=== PATIENT | female | born 1955 | race Caucasian/White ===

== ENCOUNTER 2018-02-25 16:04 | Outpatient (RCR) | payer BC, SELFPAY ==
--- NOTE | 2018-02-25 14:27 | PTTR_ITS ---
DATE: 02/25/18 SUBJECTIVE: Pt states that she is doing ok and would just like some updates on her HEP. OBJECTIVE: Manual therapy: ([id number]).Pt placed in the supine position receiving gentle traction through the talocrural joint but help in a position of 10* of plantarflexion. She is lightly mobilized with segmental glides laterally of the calcaneus while mobilizing the subtalar joint on a fixed talus. Pt then mobilized with a gentle tower glide on a fixed ankle mortis with posterior direction and then light plantar flexion and dorsiflexion to end range with the knee extended. Gentle soft tissue mobilization around the peroneal tendons was also applied with good effect. Therapeutic procedures ([id number]). * X HEP review * X Provided skilled instruction in proper exercise performance * X Provided skilled manual cues to facilitate proper muscle recruitment and/ or movement pattern * X Other: Pt taken through walking lunges, SLS with UE exercises also taken through high knee pause with walks progressing this activity to include longer time spent in a SLS position. We will also dynamically working through gait progressions. Direct treatment time: 30 minutes Total treatment time: 30 minutes
== END 2018-03-22 23:59 | disposition home or self-care (01) ==
LOC: PT 16:04
PROVIDERS: PCP Nurse Practitioner Family; Referring Provider Orthopaedic Surgery; Visit Provider Orthopaedic Surgery
DX: S86.312D Strain of muscle(s) and tendon(s) of peroneal muscle group at lower leg level, left leg, subsequent encounter (principal)
CPT/HCPCS: 97110; 97140

== ENCOUNTER 2018-07-05 16:09 | Outpatient (REF) | payer BC, SELFPAY ==
[2018-07-05 20:52] LABS: BUN 24 mg/dL (7-18); CREATININE 0.74 mg/dL (0.55-1.02); Calcium 8.7 mg/dL (8.5-10.1); Chloride 103 mmol/L (98-107); Glucose 96 mg/dL (70-100); Potassium 3.9 mmol/L (3.5-5.1); Sodium 142 mmol/L (136-145)
[2018-07-05 21:42] LABS: Hemoglobin A1C 5.7 % (4.5-6.2)
[2018-07-08 11:01] LABS: Hepatitis C Ab w Rflx HCV PCR Negative (NEGAT)
== END 2018-07-05 16:29 ==
LOC: NCHCN 16:09
PROVIDERS: PCP Nurse Practitioner Family; Visit Provider Nurse Practitioner Family
DX: R20.2 Paresthesia of skin (principal); K64.9 Unspecified hemorrhoids; K59.00 Constipation, unspecified; E13.10 Other specified diabetes mellitus with ketoacidosis without coma; Z00.00 Encounter for general adult medical examination without abnormal findings; R51 Headache; R73.01 Impaired fasting glucose; E66.3 Overweight; Z11.59 Encounter for screening for other viral diseases
CPT/HCPCS: 80048; 86803; 83036

== ENCOUNTER 2018-09-16 10:59 | Day surgery (SDC) | payer BC, SELFPAY ==
--- NOTE | 2018-09-16 07:05 | W.COLOREPORT ---
Date of service: 09/16/18 Time of Service: 12:32 Colonoscopy Report Date of procedure: 09/16/18 Pre-op diagnosis general: Colon Cancer screening Post-op diagnosis procedure note: same Procedure: Colonoscopy Surgeon: Dahlia Flores Anesthesia proc note operative: MAC (Rj Corona, PEDRO/ ASA 2) Estimated blood loss (mL): 0 Pathology: none sent Complications: None Disposition: same day Indications: Mrs. Watts is a pleasant 63 year old female who was seen in the office for a screening colonoscopy. Her last colonoscopy was in 2007 and was normal. Risks, benefits and complications have been reviewed. Complications include but are not limited to bleeding, pain, perforation, missed small lesion/polyp, sore throat, aspiration and adverse reaction to the medications. Questions were entertained and answered to their satisfaction and they wished to proceed. No guarantees were given or implied. Prep: Miralax/Dulcolax Procedure Start Time: 12:32 Procedure End Time: 13:02 Retraction Time: 10 Findings: Diverticulosis of sigmoid colon Procedure Description: After informed consent was obtained the patient was taken to the procedure room and placed in a left decubitous position. Monitors were applied and a time out was done. The patients name, date of , procedure, allergies to medications and metal in their body was reviewed. The patient was then sedated. Once sedated and comfortable a rectal exam was done. External exam was normal. Internal exam revealed a normal sphincter tone and no palpable masses. The scope was then introduced and retro-flexed. No internal hemorrhoids were identified. The scope was then advanced to the cecum with some difficulty due to some sharp corners and tortuousity of the descending and transverse colon. The TI and appendiceal orifice were identified. The prep was adequate. The scope was then slowly retracted over 10 minutes back into the rectum. There were no polyps. There was mild diverticulosis noted in the descending and sigmoid colon. The scope was removed and the patient was woken up and taken back to Same day surgery in stable condition. The patient tolerated the procedure well and there were no immediate complications. Follow up: The patient should follow up in 10 years unless they develop changes in bowel habits or other new gastrointestinal complaints.
--- NOTE | 2018-09-16 07:09 | W.PM.DSUDISC ---
Discharge Plan Disposition Patient Disposition: HOME Condition: Good Discharge Details Reason For Visit: Colon Cancer screening Attending Provider: Dahlia Flores Primary Care Provider: Rupinder Farooq Home Meds and New Rx's Prescriptions: Continued hydrocortisone acetate [Anusol-HC] 25 mg suppository 25 mg [place] DAILY PRN (Reason: hemorrhoids) RF: 0 cholecalciferol (vitamin D3) 1,000 unit capsule 1,000 unit PO DAILY RF: 0 sumatriptan succinate [Imitrex] 50 MG tablet 50 mg PO PRN RF: 0 glucosamine sulfate 2KCl 1,000 MG tablet 1,000 mg PO DAILY RF: 0 celecoxib [Celebrex] 50 MG capsule 100 mg PO BID RF: 0 multivitamin [Daily Multi-Vitamin] 1 EACH tablet 1 ea PO DAILY RF: 0 melatonin 3 MG tablet 3 mg PO DAILY RF: 0 omega-3 fatty acids-fish oil 1 EACH capsule 1 ea PO DAILY RF: 0 estradiol [Vagifem] 10 MCG tablet 10 mcg VG 2x/wk Qty: 24 RF: 4 amlodipine 5 MG tablet 5 mg PO DAILY RF: 0 Fiber Laxative (methylcellulo) 500 MG tablet 1 tab PO DAILY RF: 0 acetaminophen [Tylenol Extra Strength] 500 mg Tablet 1,000 mg PO PRNRF: 0 Discontinued bisacodyl [Dulcolax (bisacodyl)] 5 mg tablet,delayed release (DR/EC) 5 mg PO ONCE Qty: 4 RF: 0 polyethylene glycol 3350 17 gram/dose powder 255 g PO ONCE Qty: 255 RF: 0 Discharge Instructions Instructions: Colonoscopy (DC), Diverticulosis (DC) Additional Instructions: Findings: diverticulosis Follow up: 10 years Please call if you develop: fevers >101.5 Nausea or Vomiting Abdominal pain that is not transient DAY SURGERY UNIT POST COLONOSCOPY INSTRUCTIONS 1. Because there will be medication in your system for the next 24 hours, you may feel a little sleepy. Your coordination will be affected. Therefore: a. Do not drive or operate dangerous equipment for 24 hours. b. Do not drink alcohol beverages for 24 hours (not even beer). c. Plan to go home and rest for the day. 2. Generally there are no restrictions on your activity after a day or so has gone by, but you may feel a bit fatigued for a few days. 3 After you arrive home you may have a light meal and return to a normal diet as you can tolerate it without feeling sick to your stomach. 4. After surgery, you may feel pain or discomfort. This should be only transient, but if it persists please contact your doctor. 5. If there are any questions regarding the findings of your procedure, please feel free to contact your doctor. 6. If you are unable to contact your doctor with a problem, contact the hospital at [phone]. 7. Continue all your regular medications unless directed otherwise. I understand the above instructions and have no questions. Signature of Patient or Responsible Adult Escort Date/Time Name of Responsible Adult Escort Signature of Nurse Date/Time Activity:: Activity as Tolerated Diet:: high fiber diet Discharge Orders Discharge Orders: Discharge Order (Routine); Ordered 09/16/18 Ordered By: Dahlia Flores DS: Diagnosis Discharge Diagnosis (1) H/O colonoscopy: Status: Chronic
[2018-09-16 11:50] VITALS: BP 140/80; PULSE 65; RESP 18; TEMP 37; O2SAT 100
[2018-09-16] MEDS: Lactated Ringers 1,000 ML 80 ML IV (12:10)
[2018-09-16 14:10] VITALS: BP 145/78; PULSE 71; RESP 14; TEMP 36.6; O2SAT 100
== END 2018-09-16 14:43 | disposition home or self-care (01) ==
LOC: SUR 10:59
PROVIDERS: PCP Nurse Practitioner Family; Visit Provider Surgery
PROC: 0DJD8ZZ Inspection of Lower Intestinal Tract, Via Natural or Artificial Opening Endoscopic (ICD-10-PCS; CPT 45378; principal; 2018-09-16 12:30)
DX: Z12.11 Encounter for screening for malignant neoplasm of colon (principal); K57.30 Diverticulosis of large intestine without perforation or abscess without bleeding
CPT/HCPCS: 45378

== ENCOUNTER 2019-03-05 03:41 | Outpatient (CLI) | payer BC, SELFPAY ==
--- NOTE | 2019-03-05 12:22 | DI.MAMMO_ITS ---
SYMPTOM/DIAGNOSIS: SCREENING, Z12.31 BILATERAL SCREENING MAMMOGRAM: Mammograms were interpreted according to the usual protocol including computer analysis with CAD system, tomosynthesis and C view imaging. Comparison is made with exams from 2015 through 2018. The breasts are composed of scattered fibroglandular densities, breast density category B. There is a stable area of nodularity in the lateral right breast. No suspicious masses or suspicious microcalcifications or changes are seen. IMPRESSION: Category 2, negative mammogram with benign findings. Yearly screening mammography is recommended. Breast density category B. MQSA ASSESSMENT OF FINDINGS: Negative with benign findings. Category 2. Patient will receive a letter notifying them of these results. BI-RADS category B. There are scattered areas of fibroglandular density.
== END 2019-03-05 04:01 ==
PROVIDERS: PCP Nurse Practitioner Family; Visit Provider Nurse Practitioner Family
DX: Z13.21 Encounter for screening for nutritional disorder (principal)
CPT/HCPCS: 77063; 77067

== ENCOUNTER 2019-07-25 12:34 | Outpatient (REF) | payer BC, SELFPAY ==
[2019-07-25 20:29] LABS: Abs Immature Grans 0.01 k/cumm (0.0-0.09); Absolute Basophil Count 0.02 k/cumm (0.0-0.2); Absolute Eosinophil Count 0.13 k/cumm (0.0-0.7); Absolute Lymphocyte Count 2.03 k/cumm (1.2-3.4); Absolute Monocyte Count 0.47 k/cumm (0.11-0.7); Absolute Neutrophil Count 2.69 k/cumm (1.2-6.7); Basophils % 0.4; Eosinophils % 2.4; HCT 38.6 % (36.0-46.0); HGB 12.9 g/dL (12.0-15.5); Immature Grans % 0.2 %; Lymphocytes % 37.9; Mean Corp. HGB Concentration 33.4 g/dL (32.0-36.0); Mean Corpuscular Hemoglobin 30.1 pg (27.0-33.0); Mean Platelet Volume 10.5 fL (8.0-11.0); Monocytes % 8.8; Neutrophils % 50.3; Platelet Count 234 x1000/uL (130-400); RBC 4.29 m/cumm (4.00-5.20); White Blood Cell Count 5.35 k/cumm (4.4-10.8)
[2019-07-25 20:44] LABS: ALT 41 U/L (14-59); AST 20 U/L (15-37); Albumin 3.9 g/dL (3.4-5.0); Alkaline Phosphatase 57 U/L (46-116); Anion Gap 10.9 mmol/L (3-11); BUN 17 mg/dL (7-18); Bilirubin, Total 0.4 mg/dL (0.2-1.0); CO2 28.1 mmol/L (21.0-32.0); CREATININE 0.76 mg/dL (0.55-1.02); Calcium 9.3 mg/dL (8.5-10.1); Calculated LDL 90 mg/dL; Chloride 103 mmol/L (98-107); Cholesterol 170 mg/dL (<200); Glucose 102 mg/dL (74-106); HDL Cholesterol 43 mg/dL (40-60); Potassium 3.8 mmol/L (3.5-5.1); Sodium 142 mmol/L (136-145); Triglyceride 186 mg/dL (<150)
[2019-07-25 20:45] LABS: Hemoglobin A1C 5.8 % (3.8-5.6)
== END 2019-07-25 12:54 ==
LOC: NCHCN 12:34
PROVIDERS: PCP Nurse Practitioner Family; Visit Provider Nurse Practitioner Family
DX: Z00.00 Encounter for general adult medical examination without abnormal findings (principal); R73.01 Impaired fasting glucose; K59.00 Constipation, unspecified; K64.9 Unspecified hemorrhoids; L29.9 Pruritus, unspecified; M54.5 Low back pain; R20.2 Paresthesia of skin; M79.646 Pain in unspecified finger(s)
CPT/HCPCS: 80053; 80061; 83036; 84443; 85025

== ENCOUNTER 2019-10-24 15:36 | Emergency (ER) | payer BC, SELFPAY | END 2019-10-24 23:10 | LOC: ER 10-26 05:28 | PROVIDERS: PCP Nurse Practitioner Family | DX: Z53.21 Procedure and treatment not carried out due to patient leaving prior to being seen by health care provider (principal) ==

== ENCOUNTER 2020-05-12 18:37 | Outpatient (REF) | payer BC, SELFPAY ==
[2020-05-12 22:29] LABS: HCT 38.6 % (36.0-46.0); HGB 12.8 g/dL (11.2-15.7); MCH 30.1 pg (27.0-33.0); MCHC 33.2 % (32.0-36.0); MCV 90.8 fL (80-95); MPV 10.6 fL (8.0-11.0); Platelet Count 241 10^3/uL (130-400); RBC 4.25 10^6/uL (3.93-5.22); RDW-SD 42.6 fL; WBC 6.08 10^3/uL (4.4-10.8)
[2020-05-12 22:37] LABS: ALT 30 U/L (14-59); AST 17 U/L (15-37); Albumin 3.9 g/dL (3.4-5.0); Alkaline Phosphatase 57 U/L (46-116); Anion Gap 7.1 mmol/L (3-11); BUN 22 mg/dL (7-18); Bilirubin, Total 0.3 mg/dL (0.2-1.0); CO2 26.9 mmol/L (21.0-32.0); CREATININE 0.99 mg/dL (0.55-1.02); Calcium 8.7 mg/dL (8.5-10.1); Chloride 104 mmol/L (98-107); Estimated GFR 56.47 (mL/min/1.73m2); Glucose 91 mg/dL (74-106); Potassium 3.9 mmol/L (3.5-5.1); Sodium 138 mmol/L (136-145); Total Protein 6.8 g/dL (6.4-8.2)
== END 2020-05-12 18:57 ==
LOC: NCHCN 18:37
PROVIDERS: PCP Nurse Practitioner Family; Visit Provider Family Medicine
DX: R10.31 Right lower quadrant pain (principal)
CPT/HCPCS: 80053; 85027

== ENCOUNTER 2020-05-14 10:34 | Outpatient (REF) | payer BC, SELFPAY ==
[2020-05-18 13:13] LABS: Misc Referral (VDH) See Comments
== END 2020-05-14 10:54 ==
LOC: LBN 10:34
PROVIDERS: PCP Nurse Practitioner Family; Visit Provider Family Medicine
DX: R10.31 Right lower quadrant pain (principal)
CPT/HCPCS: 87177

== ENCOUNTER 2020-06-10 01:16 | Outpatient (CLI) | payer BC, SELFPAY ==
--- NOTE | 2020-06-10 09:58 | DI.CT_ITS ---
EXAM: CT ABDOMEN PELVIS W CLINICAL HISTORY: RLQ ABD PAIN,R10.31 TECHNIQUE: Imaging Protocol: Axial computed tomography images with coronal and sagittal reformatted images were created and reviewed CONTRAST MATERIAL: Intravenous: Omnipaque 350 Contrast volume:100 mL Oral: Yes COMPARISON: CT ABD PELVIS WITH CONTRAST from 07/29/2010 FINDINGS: ABDOMEN: Lung Bases: Normal where visualized. Small hiatal hernia. Liver: Normal density. No measurable mass. The liver measures 18.9 cm in length. Portal, Superior Mesenteric, and Splenic Veins: Unremarkable. Gallbladder and Biliary Tract: No radiodense calculus or dilation. Pancreas: Normal density, no abnormal calcifications or inflammatory process. Spleen: Normal. Adrenals: No masses seen. Kidneys: Normal size, contour and axis. No radiodense stones or obstructive uropathy. There is a 1.2 cm hyperdense nodule in the anterior aspect of the superior pole of the left kidney. There is an 8.1 transverse by 8.1 AP by 7.42 craniocaudad cm simple cyst in the inferior pole of the left kidney. Abdominal Aorta: Abdominal portion non-dilated. Minimal atherosclerosis. Bowel: No obstruction or bowel wall thickening. No evidence of acute appendicitis. There are few sca ttered diverticula in the sigmoid colon but no evidence of acute diverticulitis. Peritoneal Cavity: No ascites, collection or mesenteric inflammatory response. Lymph Nodes: Within normal limits. Bones: Degenerative changes are present in the lumbar spine. Note is made of a hemangioma in the L3 vertebral body. Soft Tissues: There is a small fat containing umbilical hernia. PELVIS: Bladder: Symmetric distention, no gross wall thickening. Reproductive Organs: There is a pessary in place. Reproductive organs are otherwise unremarkable. Lymph Nodes: Within normal limits. Bones: Please see the above discussion. IMPRESSION: 1. 1.2 cm hyperdense nodule in the anterior aspect of the superior pole of the left kidney. Neoplasm cannot be excluded. Follow-up with renal ultrasound and/or MRI of the kidneys. 2. No evidence of cholelithiasis, obstructive uropathy or appendicitis. 3. No acute abdominal or pelvic process. RADIATION DOSE DELIVERED: 723mGy.cm Total DLP DATA REPOSITORY: All CT scans at this facility are submitted to the National Radiology Data Registry (NRDR) Dose Index Registry (DIR) with the [employer] (A[employer]). RADIATION OPTIMIZATION: All CT scans at this facility use at least one of these dose optimization te chniques: automated exposure control; mA and/or kV adjustment per patient size (includes targeted exa ms where dose is matched to clinical indication); or iterative reconstruction.
[2020-06-10] MEDS: Omnipaque 350 MG/ML 100 ML BTL IJ (10:46)
[2020-06-10] MEDS: Normal Saline - Diluent 50 ML VIAL IV (10:49)
== END 2020-06-10 01:36 ==
PROVIDERS: PCP Nurse Practitioner Family; Visit Provider Family Medicine
DX: N28.89 Other specified disorders of kidney and ureter (principal); R10.31 Right lower quadrant pain
CPT/HCPCS: 74177; J3490

== ENCOUNTER 2020-06-16 00:59 | Outpatient (CLI) | payer BC, SELFPAY ==
--- NOTE | 2020-06-16 13:30 | DI.MAMMO_ITS ---
EXAM: MAMMO SCREENING CLINICAL HISTORY: SCREENING,Z12.31 TECHNIQUE: Mammograms were interpreted according to the usual protocol including computer analysis w [employer] CAD system, tomosynthesis and C-view imaging. COMPARISON: FINDINGS: The breasts are of moderate density with fairly symmetrical distribution of fibroglandular tissue. T here is a nodular area of focal increased radiodensity with a fairly smooth border projected in the l ower outer quadrant of the right breast, this had been present and stable on multiple previous examin ations but is increased in size on today's examination, this now measures about 13 x 8 millimeters in greatest diameter. No other significant change identified in either breast. No clumped Microcalcification seen. IMPRESSION: Interval increase in size of right breast mass which appears well circumscribed. This is an indeterm inate finding, additional evaluation with breast ultrasound is recommended. Additional mammographic views may also be indicated depending on the results of ultrasonography. BI-RADS Category 0 - Assessment Incomplete: Need additional imaging evaluation Breast Density - Category B - Scattered areas of fibroglandular density
== END 2020-06-16 01:19 ==
PROVIDERS: PCP Nurse Practitioner Family; Visit Provider Family Medicine
DX: Z12.31 Encounter for screening mammogram for malignant neoplasm of breast (principal); R92.8 Other abnormal and inconclusive findings on diagnostic imaging of breast
CPT/HCPCS: 77063; 77067

== ENCOUNTER 2020-06-22 00:37 | Outpatient (CLI) | payer BC, SELFPAY ==
--- NOTE | 2020-06-22 | DI.US_ITS ---
EXAM: US RENAL CLINICAL HISTORY: ACQUIRED COMPLEX CYST,N28.1 TECHNIQUE: Ultrasound performed using standard protocol. COMPARISON: CT ABD PELVIS WITH CONTRAST from 07/29/2010 US RIGHT BREAST ULTRASOUND from 06/08/[address] ABDOMEN PELVIS W from 06/10/2020 FINDINGS: Ultrasound examination was performed to evaluate 12 millimeter in diameter left upper pole renal mass identified on recent contrast enhanced CT of June 10. Ultrasound a graphically, this is avasc ular and well circumscribed. It is hypoechoic but with significant internal echoes. This is a nonsp ecific ultrasound appearance, differential diagnosis would include a proteinaceous or hemorrhagic cys t as well as neoplasm. Lesion measures 1.0 cm in diameter ultrasonographically. Note is also made of a very large simple cyst measuring up to 8 cm in diameter of the lower pole of t he left kidney. Right kidney is unremarkable in appearance. Urinary bladder appears normal, uretera l jets are visualized bilaterally. Pre and postvoid urinary bladder volume measurements, 167 cc and 0 cc respectively. IMPRESSION: Indeterminate left upper pole renal lesion. A noncontrast CT examination of the kidneys is requested for further evaluation. If the noncontrast CT does not establish benign etiology for this lesion on the basis of lesion attenuation, a follow-up renal protocol MRI without and with contrast would be r ecommended. DATA REPOSITORY:
== END 2020-06-22 00:57 ==
PROVIDERS: PCP Nurse Practitioner Family; Visit Provider Family Medicine
DX: N28.9 Disorder of kidney and ureter, unspecified (principal); N28.1 Cyst of kidney, acquired
CPT/HCPCS: 76770

== ENCOUNTER 2020-07-20 01:49 | Outpatient (CLI) | payer BC, SELFPAY ==
--- NOTE | 2020-07-20 | DI.MAMMO_ITS ---
EXAM: MG MAMMO SCREEN CALL BACK UNI CLINICAL HISTORY: F/U MAMMO AND US, INCREASE RT BREAST MASS. TECHNIQUE: Craniocaudal and mediolateral oblique Full Field Digital Mammography views of the breast with Computer Aided Diagnosis followed by Tomosynthesis and breast ultrasound. COMPARISON: 2009 through the recent exam of June 11. FINDINGS: Mammography/Tomosynthesis: Cc and MLO spot-compression views with tomography were performed of the lateral at and central and in ferior portions of the right breast. Masses/Architectural Distortion: There is a stable smoothly marginated nodule in the lateral right br east. Microcalcifictions: No suspicious pleomorphic-type are seen. Skin Thickening/Nipple Retraction: None. Breast US: Echotexture: Normal appearance of the glandular tissue. Shadowing: No suspicious foci. Cyst: 9 x 2 x 8 millimeter cyst in the lateral right breast, 4 cm from the nipple which does not appe ar to correspond to the mammographic nodule. Solid lesions: None seen. Ductal dilation: None. IMPRESSION: 1. No evidence of malignancy is noted. Stable circumscribed nodule in the lateral left breast. 2. Unless there is more urgent need, follow-up screening mammography is recommended, as per [place] [employer] guidelines. 3. The findings were discussed with the patient on the date of the examination. BI-RADS Category 2 - Benign Findings Breast Density - Category B - Scattered areas of fibroglandular density A negative radiographic report should not delay biopsy if a dominant or clinically suspicious mass is present. Up to ten percent of cancers are not identified on mammography. A negative report may reinforce clinical impression. Adenosis and dense breasts may obscure an underlying neoplasm. False positive reports average 6 to 10%. Patient will receive a letter notifying them of these results.
== END 2020-07-20 02:09 ==
PROVIDERS: PCP Nurse Practitioner Family; Visit Provider Family Medicine
DX: N63.20 Unspecified lump in the left breast, unspecified quadrant (principal); N60.01 Solitary cyst of right breast
CPT/HCPCS: 76642; 77063; 77067

== ENCOUNTER 2020-08-13 19:40 | Outpatient (REF) | payer BC, SELFPAY ==
[2020-08-13 20:51] LABS: Hemoglobin A1C 5.6 % (<5.7)
== END 2020-08-13 20:00 ==
LOC: NCHCN 19:40
PROVIDERS: PCP Nurse Practitioner Family; Visit Provider Nurse Practitioner Family
DX: N28.1 Cyst of kidney, acquired (principal); M25.561 Pain in right knee; R10.31 Right lower quadrant pain; K59.00 Constipation, unspecified; M79.644 Pain in right finger(s); R73.03 Prediabetes; R51.9 Headache, unspecified; Z00.00 Encounter for general adult medical examination without abnormal findings; M79.645 Pain in left finger(s)
CPT/HCPCS: 83036

== ENCOUNTER 2021-03-21 04:01 | Outpatient (CLI) | payer BC, SELFPAY ==
[2021-03-23 13:48] LABS: IgA 146 mg/dL (85-499); Interpretation (See Note); Tissue Transglutaminase IgA <1.2 U/mL (<4.0)
== END 2021-03-21 04:02 | disposition home or self-care (01) ==
LOC: LBO 04:01
PROVIDERS: PCP Nurse Practitioner Family; Visit Provider Nurse Practitioner Family
DX: Z91.89 Other specified personal risk factors, not elsewhere classified; R10.31 Right lower quadrant pain; R11.10 Vomiting, unspecified; M54.5 Low back pain
CPT/HCPCS: 36415; 82784; 83516

== ENCOUNTER 2021-07-01 11:37 | Outpatient (CLI) | payer BC, SELFPAY ==
--- NOTE | 2021-07-01 10:45 | DI.RAD_ITS ---
Exam(s) XR KNEE LT 4V AP,LAT,SHARRON,PAT XR KNEE RT 4V AP,LAT,SHARRON,PAT EXAM: XR KNEE RT 4V AP,LAT,SHARRON,PAT and XR knee LT 4 v CLINICAL HISTORY: pain. TECHNIQUE: 2D digital imaging was performed of the right knee. Seven views obtained. AP, lateral, M erchant and PA tunnel views were obtained. COMPARISON: No priors for comparison. FINDINGS: BONES: No acute fracture is present. No bony destructive lesion is seen. Enthesophytes are seen at th e superior patella bilaterally. JOINTS: The knee is normally aligned. There is mild spurring of the posterior patella bilaterally. T here is a small left joint effusion. SOFT TISSUE: Normal. IMPRESSION: Mild degenerative changes of both knees. DATA REPOSITORY: RADIATION DOSE DELIVERED:
== END 2021-07-01 11:38 | disposition home or self-care (01) ==
LOC: DIORS 11:38
PROVIDERS: PCP Nurse Practitioner Family; Referring Provider Nurse Practitioner Family; Visit Provider Physician Assistant Surgical
DX: M25.561 Pain in right knee (principal); M25.562 Pain in left knee; M17.0 Bilateral primary osteoarthritis of knee
CPT/HCPCS: 73564

== ENCOUNTER 2021-08-01 02:02 | Outpatient (CLI) | payer BC, SELFPAY ==
--- NOTE | 2021-08-01 14:00 | DI.MAMMO_ITS ---
Exam(s) MAMMO SCREENING EXAM: MAMMO SCREENING CLINICAL HISTORY: SCREENING, Z12.31 TECHNIQUE: Mammograms were interpreted according to the usual protocol including computer analysis w wedgies CAD system, tomosynthesis and C-view imaging. COMPARISON: 2013 through 2019 FINDINGS: The breasts are composed of scattered fibroglandular densities, Breast Density category B. No suspicious masses or suspicious microcalcifications are seen. Stable circumscribed nodule upper-o uter quadrant right breast. No skin thickening or abnormal axillary lymph nodes are seen. There has been no significant change from prior exams. IMPRESSION: BI-RADS Cat 2 - Benign Findings Yearly screening mammography is recommended. Breast Density - Category B, scattered fibroglandular densities. A negative radiographic report should not delay biopsy if a dominant or clinically suspicious mass is present. Up to ten percent of cancers are not identified on mammography. A negative report may reinforce clinical impression. Adenosis and dense breasts may obscure an underlying neoplasm. False positive reports average 6 to 10%. Patient will receive a letter notifying them of these results.
== END 2021-08-01 02:22 ==
PROVIDERS: PCP Nurse Practitioner Family; Visit Provider Family Medicine
DX: Z12.31 Encounter for screening mammogram for malignant neoplasm of breast (principal)
CPT/HCPCS: 77063; 77067

== ENCOUNTER 2021-08-26 15:49 | Outpatient (REF) | payer BC, SELFPAY | END 2021-08-26 15:50 | disposition home or self-care (01) | LOC: LBN 15:49 | PROVIDERS: PCP Nurse Practitioner Family; Visit Provider Physician Assistant Medical | DX: R30.0 Dysuria (principal) | CPT/HCPCS: 87077; 87086; 87186 ==

== ENCOUNTER 2021-09-19 17:00 | Emergency (ER) | payer BC, SELFPAY ==
[2021-09-19 17:23] VITALS: BP 166/66; PULSE 84; RESP 18; TEMP 36.2; O2SAT 98
--- NOTE | 2021-09-19 17:30 | RT.EKG_ITS ---
APPROVED REPORT Exam: Resting ECG Reason for Exam: dizziness Patient Location: E HR:72 bpm ECG Measurements Heart Rate 72 AXIS PA 186 P 78 QRSd 103 QRS 55 QT 435 T 61 QTc 477 Conclusion Sinus rhythm...normal P axis, V-rate 60- 99 Physician: no stemi, inverted t wave in V1 and V2.
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
--- NOTE | 2021-09-19 18:00 | DI.RAD_ITS ---
Exam(s) XR CHEST 2V PA LATERAL EXAM: XR CHEST 2V PA LATERAL CLINICAL HISTORY: palpitations TECHNIQUE: 2D digital imaging was performed of the chest. Two images were obtained. PA and lateral views were obtained. COMPARISON: No exams were available for comparison FINDINGS: MEDIASTINUM: Normal. HEART: Normal. PULMONARY VASCULATURE: Normal. LUNGS: Clear. PLEURAL SPACE: No pleural effusion or pneumothorax. BONE:Within normal limits for the patient's age. OTHER FINDINGS:Normal. IMPRESSION: No acute pulmonary findings. DATA REPOSITORY: RADIATION DOSE DELIVERED:
--- NOTE | 2021-09-19 18:00 | DI.CT_ITS ---
Exam(s) CT BRAIN NECK CTA EXAM: CT BRAIN NECK CTA CLINICAL HISTORY: dizziness, recent neck manipulation. TECHNIQUE: Imaging Protocol: Axial CT angiography was performed with multi-slice acquisition and mu lti-planar and/or 3D reconstructions. CONTRAST MATERIAL: Intravenous: Omnipaque 350 Contrast volume:85 mL COMPARISON: No previous for comparison. FINDINGS: CT Head W/O and W: Ventricles and Extra axial spaces: Normal in size and morphology for the patient's age. Hemorrhage: None. Cerebral parenchyma: No acute territorial infarct. There is a tiny round lucency in the right basal ganglia which may represent an old lacunar infarct. Midline shift: None. Brainstem/Cerebellum: Normal. Calvarium: Normal. Visualized Paranasal sinuses/Mastoids: Clear. Soft Tissues: Unremarkable. Enhancement: Unremarkable. CTA Neck W: Common Carotid: Right: No dissection, occlusion or significant stenosis. Left: No dissection, occlusion or significant stenosis. External Carotid: Right: No occlusion or significant stenosis. Left: No occlusion or significant stenosis. Internal Carotid: Right: No dissection, occlusion or significant stenosis. Left: No dissection, occlusion or significant stenosis. Vertebral Artery: Right: No dissection, occlusion or significant stenosis. Left: No dissection, occlusion or significant stenosis. Lung Apices: Normal. Bones: Within normal limits for the patient's age. Soft Tissues: Unremarkable. Thyroid gland: There is a 1.4 x 1.1 cm hypodense partially calcified nodule in the right lobe of the thyroid gland. A smaller nodule is seen in the left lobe of the thyroid gland. Nonemergent thyroid ul trasound should be obtained for further evaluation. CTA Brain W: Internal Carotid Arteries: Unremarkable. No aneurysm, occlusion or significant stenosis. Anterior Cerebral Arteries: Right: No aneurysm, occlusion or significant stenosis. The right anterior cerebral artery appears to arise from the anterior communicating artery. This is a normal variant. Left: No aneurysm, occlusion or significant stenosis. Middle Cerebral Arteries: Right: No aneurysm, occlusion or significant stenosis. Left: No aneurysm, occlusion or significant stenosis. Posterior Cerebral Arteries: Right: No aneurysm, occlusion or significant stenosis. Left: No aneurysm, occlusion or significant stenosis. Vertebral Arteries: Right: No aneurysm, occlusion or significant stenosis. Left: No aneurysm, occlusion or significant stenosis. Basilar Artery: No aneurysm, occlusion or significant stenosis. IMPRESSION: 1. No large vessel occlusion or significant stenosis on the CT angiography of the head. 2. No acute intracranial process. 3. No occlusion or significant stenosis on the CT angiography of the neck. 4. 1.4 cm right thyroid nodule. Nonemergent thyroid ultrasound is recommended for further evaluation . RADIATION DOSE DELIVERED: 1,912.15mGy.cm Total DLP DATA REPOSITORY: All CT scans at this facility are submitted to the National Radiology Data Registry (NRDR) Dose Index Registry (DIR) with the [employer] (A[employer]). RADIATION OPTIMIZATION: All CT scans at this facility use at least one of these dose optimization te chniques: automated exposure control; mA and/or kV adjustment per patient size (includes targeted exa ms where dose is matched to clinical indication); or iterative reconstruction.
[2021-09-19 18:38] LABS: Bilirubin Negative (Negative); Blood Trace-intact (Negative); Clarity Clear (Clear); Glucose Negative (Negative); Ketones Negative (Negative); Leukocyte Esterase Small (Negative); Nitrite Negative (Negative); Specific Gravity 1.025 (1.005-1.025); Urobilinogen 0.2 EU/dL (Up TO 0.2)
[2021-09-19 18:45] LABS: Bacteria Few HPF (Negative); Epithelial Cells Few HPF (Negative)
[2021-09-19 18:46] LABS: C & S Indicated? Yes; Casts Negative LPF (Negative); Crystals Negative HPF (Negative); Mucus Trace (Negative)
[2021-09-19 19:02] LABS: Abs Immature Grans 0.04 10^3/uL (0.0-0.06); Absolute Basophil Count 0.03 10^3/uL (0.0-0.2); Absolute Eosinophil Count 0.16 10^3/uL (0.0-0.7); Absolute Lymphocyte Count 1.97 10^3/uL (1.2-3.4); Absolute Monocyte Count 0.39 10^3/uL (0.1-0.8); Basophils % 0.5; Eosinophils % 2.7; HCT 38.7 % (36.0-46.0); Immature Grans % 0.7; Lymphocytes % 33.4; MCHC 33.6 % (32.0-36.0); MCV 89.4 fL (80-95); Monocytes % 6.6; Neutrophils % 56.1; Nucleated RBC 0 %; Platelet Count 216 10^3/uL (130-400); RBC 4.33 10^6/uL (3.93-5.22); RDW 12.9 % (11.7-14.6); RDW-SD 42.3 fL; WBC 5.89 10^3/uL (4.4-10.8)
[2021-09-19 19:22] VITALS: BP 142/67; PULSE 82; O2SAT 96
[2021-09-19 19:23] VITALS: O2SAT 97
[2021-09-19 19:46] LABS: ALT 27 U/L (14-59); AST 16 U/L (15-37); Alkaline Phosphatase 62 U/L (46-116); Anion Gap 8.2 mmol/L (3-11); BUN 19 mg/dL (7-18); Bilirubin, Total 0.4 mg/dL (0.2-1.0); CO2 28.8 mmol/L (21.0-32.0); CREATININE 0.8 mg/dL (0.55-1.02); Calcium 9.1 mg/dL (8.5-10.1); Chloride 103 mmol/L (98-107); Glucose 161 mg/dL (74-106); Magnesium 2.4 mg/dL (1.8-2.4); Potassium 3.6 mmol/L (3.5-5.1); Sodium 140 mmol/L (136-145); Total Protein 7.4 g/dL (6.4-8.2); Troponin I < 50 ng/L (<or=60)
[2021-09-19] MEDS: Omnipaque 350 MG/ML 100 ML BTL IJ (20:17)
[2021-09-19] MEDS: Normal Saline Flush 10 ML SYR IVP (20:19)
[2021-09-19] MEDS: Normal Saline 1,000 ML 500 ML IV (20:20)
--- NOTE | 2021-09-19 20:29 | DI.VRAD_ITS ---
PROCEDURE INFORMATION: Exam: CT Angiography Head With Contrast, Arteriography Exam date and time: 09/19/2021 6:03 PM Age: 66 years old Clinical indication: Dizziness and giddiness; Patient HX: Dizziness, recent neck manipulation TECHNIQUE: Imaging protocol: Computed tomography angiography of the head with contrast. Exam focused on the arteries. 3D rendering (Not supervised by radiologist): MIP and/or 3D reconstructed images were created by the technologist. Radiation optimization: All CT scans at this facility use at least one of these dose optimization techniques: automated exposure control; mA and/or kV adjustment per patient size (includes targeted exams where dose is matched to clinical indication); or iterative reconstruction. Contrast material: OMNIPAQUE 350; Contrast volume: 85 ml; Contrast route: INTRAVENOUS (IV); COMPARISON: No relevant prior studies available. FINDINGS: ANTERIOR CIRCULATION: Right internal carotid artery: Unremarkable. Intracranial segment is patent with no significant stenosis. No aneurysm. Right middle cerebral artery: Unremarkable. No occlusion or significant stenosis. No aneurysm. Right anterior cerebral artery: Unremarkable. No occlusion or significant stenosis. No aneurysm. Left internal carotid artery: Unremarkable. Intracranial segment is patent with no significant stenosis. No aneurysm. Left middle cerebral artery: Unremarkable. No occlusion or significant stenosis. No aneurysm. Left anterior cerebral artery: Unremarkable. No occlusion or significant stenosis. No aneurysm. POSTERIOR CIRCULATION: Right vertebral artery: Unremarkable. No occlusion or significant stenosis. No aneurysm. Left vertebral artery: Unremarkable. No occlusion or significant stenosis. No aneurysm. Basilar artery: Unremarkable. No occlusion or significant stenosis. No aneurysm. Right posterior cerebral artery: Unremarkable. No occlusion or significant stenosis. No aneurysm. Left posterior cerebral artery: Unremarkable. No occlusion or significant stenosis. No aneurysm. Brain: No definite mass, mass effect, or midline shift. Cerebral ventricles: No ventriculomegaly. Bones/joints: Unremarkable. No acute fracture. Soft tissues: Unremarkable. IMPRESSION: No large vessel stenosis or occlusion. PROCEDURE INFORMATION: Exam: CT Angiography Neck With Contrast Exam date and time: 09/19/2021 6:03 PM Age: 66 years old Clinical indication: Dizziness and giddiness; Patient HX: Dizziness, recent neck manipulation TECHNIQUE: Imaging protocol: Computed tomography angiography of the neck with contrast. 3D rendering (Not supervised by radiologist): MIP and/or 3D reconstructed images were created by the technologist. Radiation optimization: All CT scans at this facility use at least one of these dose optimization techniques: automated exposure control; mA and/or kV adjustment per patient size (includes targeted exams where dose is matched to clinical indication); or iterative reconstruction. Contrast material: OMNIPAQUE 350; Contrast volume: 85 ml; Contrast route: INTRAVENOUS (IV); COMPARISON: No relevant prior studies available. FINDINGS: Right common carotid artery: No stenosis. No dissection or occlusion. Right internal carotid artery: No stenosis of the extracranial segment. No dissection or occlusion. Right external carotid artery: No occlusion or stenosis of the origin. Left common carotid artery: No stenosis. No dissection or occlusion. Left internal carotid artery: No stenosis of the extracranial segment. No dissection or occlusion. Left external carotid artery: No occlusion or stenosis of the origin. Right vertebral artery: No stenosis. No dissection or occlusion. Left vertebral artery: No stenosis. No dissection or occlusion. Thyroid: Right thyroid solid nodule with peripheral calcifications measuring 1.4 cm. Soft tissues: Normal. No significant soft tissue swelling. Bones/joints: No acute fracture. IMPRESSION: 1. No evidence of occlusion or hemodynamically significant carotid or vertebral artery stenosis. 2. Right thyroid solid nodule with peripheral calcifications measuring 1.4 cm. REFERENCES: NASCET CRITERIA. The degree of internal carotid artery stenosis is based on NASCET criteria. Normal is no stenosis. Mild is less than 50% stenosis. Moderate is 50-69% stenosis. Severe is 70% to 99% stenosis. Total occlusion is no detectable patent lumen. Dictated and Authenticated by: Ronaldo Pearce MD. Ordering:KATEY Rinaldi MD
--- NOTE | 2021-09-19 20:41 | DI.VRAD_ITS ---
PROCEDURE INFORMATION: Exam: XR Chest Exam date and time: 09/19/2021 8:14 PM Age: 66 years old Clinical indication: Other: Palpitations TECHNIQUE: Imaging protocol: XR of the chest. Views: 2 views. COMPARISON: CT BRAIN NECK CTA 09/19/2021 7:54 PM FINDINGS: Lungs: Unremarkable. No consolidation. Pleural spaces: Unremarkable. No pleural effusion. No pneumothorax. Heart/Mediastinum: Unremarkable. No cardiomegaly. Bones/joints: Unremarkable. IMPRESSION: No acute findings. Dictated and Authenticated by: Ron James MD. Ordering:KATEY Rinaldi MD
--- NOTE | 2021-09-19 21:00 | HOLTER_ITS ---
APPROVED REPORT Conclusion This is a 48-hour Holter monitor ordered for palpitations Predominant rhythm was sinus. Average heart rate was 82. Minimum was 57, maximum 133 A total of 16 isolated PVCs were seen There were very rare atrial premature beats There was no atrial fibrillation, no high-grade AV block, no pauses greater than 3 seconds There were no apparent patient symptoms
[2021-09-19] MEDS: Aspirin 81 MG CHEW PO (21:17)
--- NOTE | 2021-09-21 11:19 | W.ED.FU ---
Follow Up Plan: I received urine culture from date of service 09/19/2021 that is growing Citrobacter Koseri, pansensitive. Urinalysis from ED visit was reviewed and does have 10-20 WBCs with small leukocyte esterase and trace blood with few epithelial cells and few bacteria. I called and spoke with the patient, she notes she is feeling better. She does note that she has had slight increase in frequency of urination but denies dysuria. No fevers. She does state that she had a urinary tract infection diagnosed a few weeks ago and completed a course of antibiotic as prescribed by [facility]. I do not see a clinical note from [facility] and patient is unsure of specific antibiotic. She does have penicillin allergy. I called and spoke with the patient's pharmacy who notes that she was treated with Keflex a few weeks ago. Plan will be to initiate treatment with Macrobid 100 mg twice daily x7 days. I have recommended that the patient follow-up with her primary care physician and she noted she has follow-up scheduled.
== END 2021-09-19 21:41 | disposition home or self-care (01) ==
PROVIDERS: Emergency Provider Physician Assistant; PCP Nurse Practitioner Family
DX: R42 Dizziness and giddiness (principal); R00.2 Palpitations; N39.0 Urinary tract infection, site not specified; B96.89 Other specified bacterial agents as the cause of diseases classified elsewhere
CPT/HCPCS: 36415; 70496; 70498; 80053; 87077; 93005; 96360; 96361; 99285; 71046; 81003; 81015; 83735; 84443; 84484; 85025; 87086; 87186; 93010; 93225; 99284; J3490

== ENCOUNTER 2021-09-20 13:11 | Outpatient (RCR) | payer BC, SELFPAY | END 2021-10-20 23:59 | disposition home or self-care (01) | LOC: RT 13:11 | PROVIDERS: PCP Nurse Practitioner Family; Visit Provider Physician Assistant | DX: R00.2 Palpitations (principal) | CPT/HCPCS: 93225 ==

== ENCOUNTER 2021-09-24 13:12 | Emergency (ER) | payer BC, SELFPAY ==
[2021-09-24] VITALS (22 sets, daily range): BP systolic 121–160; BP diastolic 65–91; PULSE 69–86; RESP 12–25; TEMP 37; O2SAT 96–99
--- NOTE | 2021-09-24 13:00 | RT.EKG_ITS ---
APPROVED REPORT Exam: Resting ECG Reason for Exam: lightheaded, dizzy Patient Location: E HR:75 bpm ECG Measurements Heart Rate 75 AXIS OR 174 P 78 QRSd 102 QRS 68 QT 414 T 59 QTc 464 Conclusion Sinus rhythm...normal P axis, V-rate 60- 99. Sinus. Normal axis. No STEMI. I have reviewed and interpreted ECG and agree with software generated interpretation.
--- NOTE | 2021-09-24 13:35 | W.ED.GENAD ---
Discharge Plan Disposition Patient Disposition: HOME Condition: Stable Discharge Details Clinical Impression: Dizziness, History of UTI Primary Care Provider: Rupinder Farooq ED Provider: Christina Shook Home Meds and New Rx's Prescriptions: New ciprofloxacin HCl 250 mg tablet 250 mg PO BID 2 Days Qty: 4 0RF Continued cholecalciferol (vitamin D3) 1,000 unit capsule 1,000 unit PO DAILY 0RF Estring 2 mg (7.5 mcg /24 hour) ring 1 vag ring vaginal [id number] 0RF sumatriptan succinate [Imitrex] 50 MG tablet 50 mg PO PRN 0RF glucosamine sulfate 2KCl 1,000 MG tablet 1,000 mg PO DAILY 0RF celecoxib [Celebrex] 50 MG capsule 100 mg PO BID 0RF multivitamin [Daily Multi-Vitamin] 1 EACH tablet 1 ea PO DAILY 0RF melatonin 3 MG tablet 3 mg PO DAILY 0RF amlodipine 5 MG tablet 5 mg PO DAILY 0RF Fiber Laxative (methylcellulo) 500 MG tablet 1 tab PO DAILY 0RF acetaminophen [Tylenol Extra Strength] 500 mg Tablet 1,000 mg PO PRN PRN0RF magnesium 250 mg Tablet 250 mg PO DAILY 0RF Discharge Instructions Instructions: Urinary Tract Infection in Women (DC), Dizziness (ED) Additional Instructions: Your lab work today is reassuring and shows no evidence of acute concerning or significant findings. Stop taking your Macrobid. Start taking the Cipro antibiotic as directed until finished. Please quarantine until your Covid test result is available and if confirmed to be negative. Follow-up with your primary care doctor in 1 week. Return to the emergency department with any worsening or new concerning symptoms. Discharge Data Discharge Physician: Christina Shook Medical Decision Making 66-year-old female with a history of prediabetes, depression, migraines seen here on 09/19 for dizziness with a negative CTA head and neck sent home with a Holter monitor presents again for dizziness and palpitations. During that ED visit she had a urine culture which grew Citrobacter and was placed on Macrobid. Blood pressure hypertensive, otherwise remainder vitals within normal limits. Patient appears comfortable and nontoxic. She has no focal deficits on exam. Do not see an indication for repeat CT head imaging or chest x-ray. She had a Holter monitor 09/19 which was essentially negative for arrhythmia. Differential diagnosis includes dehydration, electrolyte abnormality, resistant UTI, etc. Will place an IV, bolus IV fluids, screening labs, repeat urinalysis and reassess. Labs reviewed. Normal white blood cell count. Potassium 3.4. Troponin negative. Urinalysis notes glucose otherwise negative for infection. As she is still having urinary symptoms and urine culture was pansensitive, will switch to fluoroquinolones as she is still symptomatic with fatigue and dizziness. Patient was able to eat and ambulate and denies any lightheadedness. She was given a dose of Cipro here as well as a prescription. Advised to follow up with the primary care doctor for re-evaluation. Usual and customary return precautions given prior to discharge. Medical Records Medical records reviewed: Yes I reviewed the patient's medical records. Medical records narrative: 09/19/21 CTA Head/Neck IMPRESSION: 1. No large vessel occlusion or significant stenosis on the CT angiography of the head.? 2. No acute intracranial process.? 3. No occlusion or significant stenosis on the CT angiography of the neck. 4. 1.4 cm right thyroid nodule.? Nonemergent thyroid ultrasound is recommended for further evaluation. 09/19/21 CXR IMPRESSION: No acute pulmonary findings. 09/19/21 Holter monitor: Conclusion This is a 48-hour Holter monitor ordered for palpitations Predominant rhythm was sinus.? Average heart rate was 82.? Minimum was 57, maximum 133 A total of 16 isolated PVCs were seen There were very rare atrial premature beats There was no atrial fibrillation, no high-grade AV block, no pauses greater than 3 seconds There were no apparent patient symptoms Lab Data Lab results reviewed: Yes I reviewed the patient's lab results. Labs: Laboratory Tests Range/Units 09/24/21 09/24/21 09/24/21 13:30 14:05 14:05 WBC (4.4-10.8) 10^3/uL 5.78 RBC (3.93-5.22) 10^6/uL 4.28 Hgb (11.2-15.7) g/dL 12.8 Hct (36.0-46.0) % 38.7 MCV (80-95) fL 90.4 MCH (27.0-33.0) pg 29.9 MCHC (32.0-36.0) % 33.1 RDW (11.7-14.6) % 13.2 Plt Count (130-400) 10^3/uL 219 MPV (8.0-11.0) fL 10.0 Immature Gran % 0.7 Neutrophils % 65.6 Lymphocytes % 24.7 Monocytes % 7.4 Eosinophils % 0.9 Basophils % 0.7 Nucleated RBC % % 0 Absolute Neutrophils (1.2-6.7) 10^3/uL 3.79 Absolute Lymphocytes (1.2-3.4) 10^3/uL 1.43 Absolute Monocytes (0.1-0.8) 10^3/uL 0.43 Absolute Eosinophils (0.0-0.7) 10^3/uL 0.05 Absolute Basophils (0.0-0.2) 10^3/uL 0.04 Sodium (136-145) mmol/L 142 Potassium (3.5-5.1) mmol/L 3.4 L Chloride (98-107) mmol/L 107 Carbon Dioxide (21.0-32.0) mmol/L 26.7 Anion Gap (3-11) mmol/L 8.3 BUN (7-18) mg/dL 16 Creatinine (0.55-1.02) mg/dL 0.8 Estimated GFR/1.73 m2 (mL/min/1.73m2) >= 60.00 Glucose (74-106) mg/dL 146 H Calcium (8.5-10.1) mg/dL 9.0 Magnesium (1.8-2.4) mg/dL 2.3 Total Bilirubin (0.2-1.0) mg/dL 0.2 AST (15-37) U/L 17 ALT (14-59) U/L 27 Alkaline Phosphatase (46-116) U/L 65 Troponin I (<or=60) ng/L < 50 Total Protein (6.4-8.2) g/dL 7.1 Albumin (3.4-5.0) g/dL 3.8 Urine Color (Yellow) Yellow Urine Clarity (Clear) Clear Urine pH (5-8) 7.0 Ur Specific [place] (1.005-1.025) 1.015 Urine Protein (Negative) mg/dL Negative Urine Ketones (Negative) mg/dL Negative Urine Blood (Negative) Negative Urine Nitrite (Negative) Negative Urine Bilirubin (Negative) Negative Urine Urobilinogen (Up TO 0.2) EU/dL 0.2 Ur Leukocyte Esterase (Negative) Negative Urine Glucose (Negative) mg/dL 250 H ECG Data Attestation: I personally reviewed and interpreted this ECG (s) as follows: Interpretation: Rate of 75, sinus, no STEMI. HPI General Mode of arrival: ambulatory. Date/Time Provider Initiated Documentation: 09/24/21 13:24. Limitations to Documentation: no limitations. Information obtained by: patient. HPI Narrative: Patient is a 56-year-old female with a history of depression, migraines, arthritis seen here on 09/19 for dizziness with an unremarkable work-up other than a UTI for which she is currently taking Macrobid presents for an episode of dizziness today. Patient states she presented here 5 days ago for dizziness and fatigue for 3 days at that time. She describes as lightheadedness that is worse in the morning and improves throughout the day and is near resolved at nighttime. She was seen here in 09/19 and had CTA head and neck and chest x-ray which was negative for acute findings and had a urine culture which grew Citrobacter and was started on Macrobid which she has been on for 4 days. She states she has had urinary frequency and urgency which has not been significantly improved since starting the antibiotic. She states she called the ambulance today for dizziness since 10:30 AM. She states she awoke feeling fine until sweeping before around 1030 and felt lightheadedness. She denies any fever, neck pain, ear pain, headache, chest pain, shortness of breath, abdominal pain, vomiting or diarrhea Related Data Home Medications Medication Instructions Recorded Confirmed amlodipine 5 mg tablet 5 mg PO DAILY 01/13/14 09/24/21 celecoxib 50 mg capsule (Celebrex) 100 mg PO BID tab-cap 01/18/15 09/24/21 glucosamine sulfate 2KCl 1,000 mg 1,000 mg PO DAILY 01/18/15 09/24/21 tablet melatonin 3 mg tablet 3 mg PO DAILY 01/18/15 09/24/21 multivitamin (Daily Multi-Vitamin) 1 ea PO DAILY 01/18/15 09/24/21 sumatriptan succinate 50 mg tablet 50 mg PO PRN 01/18/15 09/24/21 (Imitrex) methylcellulose (laxative) 500 mg 1 tab PO DAILY 06/29/17 09/24/21 tablet (Fiber Laxative (methylcellulose)) cholecalciferol (vitamin D3) 25 1,000 unit PO DAILY 09/02/18 09/24/21 mcg (1,000 unit) capsule acetaminophen 500 mg tablet 1,000 mg PO PRN PRN 09/16/18 09/24/21 (Tylenol Extra Strength) estradiol (Estring) 1 vag ring VAGINAL [id number] 12/09/20 09/24/21 ciprofloxacin HCl 250 mg tablet 250 mg PO BID 2 Days #4 tab 09/24/21 magnesium 250 mg tablet 250 mg PO DAILY 09/24/21 09/24/21 Previous Rx's Medication Instructions Recorded ciprofloxacin HCl 250 mg tablet 250 mg PO BID 2 Days #4 tab 09/24/21 Allergies Allergy/AdvReac Type Severity Reaction Status Date / Time Penicillins Allergy Intermediate Hives Verified 09/24/21 13:21 General Stated Complaint: Dizzy/Sync JOE: 2 PFSH All Active Problems (Updated 09/24/21 @ 17:07 by Christina Shook DO) Dizziness (Acute) Palpitations (Acute) Dizziness (Acute) History of UTI (Acute) Patellofemoral arthritis of right knee (Acute) Patellofemoral arthritis of left knee (Acute) Encounter for screening colonoscopy (Acute) H/O colonoscopy (Chronic ~09/16/18) 05/29/2008 Dr Fer Asher, small sigmoid diverticula, otherwise normal, repeat in ten years. 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 7.5cm simple in appearance Pre-diabetes (Chronic 01/18/15) Pessary maintenance (Chronic 04/12/17) ring with support; takes out every Sunday night, Vagifem for vaginal estrogen Pelvic relaxation due to uterovaginal prolapse (Chronic 10/06/15) Mild prolapse. Rx with #3 ring with support. Migraine (Chronic 01/18/15) treated successfully with amlodipine and Imatrex. 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 Medical History (Updated 09/24/21 @ 17:07 by Christina Shook DO) Abnormal mammogram of right breast Benign skin lesion of multiple sites Bilateral thumb pain History of depression Left ankle pain Migraine headache Osteoarthritis Paresthesia of both hands Pre-diabetes diet controlled Stress incontinence in female Tick bite Uterovaginal prolapse, unspecified Rx with #3 ring with support. Removes and cleans it herself. Uses Vagifem. Surgical History (Updated 09/16/18 @ 07:10 by Dahlia Flores MD) Colonoscopy - IV Sedation 2005 Ligation of fallopian tube 1984 Repair of ASD 1971 - injury to R femoral artery during procedure. poor circulation since Vascular Surgery 1973 attempt to repair injury to R inguinal vessel. pt has decreased blood flow to that extremity. Family History Father Diabetes Heart disease Mother Arthritis Social History (Updated 06/07/18 @ 22:38 by Trena Bucio MD) Smoking/Tobacco Use Status: Former Tobacco Use Smoking risk assessment performed?: Yes Drug use: Occasionally Substance use type: marijuana Household members: spouse and other Details: x3-Aviva (1979), Clayton (1983), Chidi (1984) lives in [place]. 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 Seatbelt use: always Do you feel safe at home: Yes Do you feel safe in your relationship?: Yes Female Reproductive History Menstrual Menopause type: natural History History 4 Para Hx # Term Pregnancies 3 Multiple births Hx # Pregnancies Ectopic pregnancies AB induced Hx Number of Living Children 3 AB spontaneous 1 Course Vital Signs Vital signs: Vital Signs Temperature 98.6 F 09/24/21 13:14 Pulse 86 09/24/21 13:14 Respiratory Rate 18 09/24/21 13:14 Blood Pressure 160/65 H 09/24/21 13:14 Pulse Oximetry 97 09/24/21 13:14 Temperature 98.6 F 09/24/21 13:14 Temperature Source Temporal Artery Scan 09/24/21 13:14 Pulse 86 09/24/21 13:14 Respiratory Rate 18 09/24/21 13:14 Respiratory Effort Non-Labored 09/24/21 13:18 Blood Pressure 160/65 H 09/24/21 13:14 Blood Pressure Position Supine 09/24/21 13:14 Pulse Oximetry 97 09/24/21 13:14 Oxygen Delivery Method Room Air 09/24/21 13:14 Oxygen Flow Rate 0 09/24/21 13:14 Pain Level 0 09/24/21 13:14 PAWSS Have you Been Recently Intoxicated or Drunk Within the Last 30 days?: No Have you Ever Experienced Previous Episodes of Alcohol Withdrawal?: No Have you ever Experienced Withdrawal Seizures?: No Have you ever Experienced Delirium Tremens(DT)s?: No Have you ever undergone Alcohol Rehabilitation Treatment (i.e, inpt ot outpatient treatment programs)?: No Have you ever Experienced Blackouts?: No Have you ever Combined Alcohol with other Downers within the last 90 days?: No Have you ever Combined Alcohol with any other Substance of Abuse during the last 90 days?: No Positive Blood Alcohol level on Presentation? [PCS.BAL]: No Evidence of Increased Autonomic Activity (i.e. HR>120, tremor, sweating, agitation, nausea)?: No Result: 0
[2021-09-24 13:40] LABS: Bilirubin Negative (Negative); Blood Negative (Negative); Clarity Clear (Clear); Glucose 250 mg/dL (Negative); Ketones Negative (Negative); Leukocyte Esterase Negative (Negative); Nitrite Negative (Negative); Specific Gravity 1.015 (1.005-1.025); Urobilinogen 0.2 EU/dL (Up TO 0.2)
[2021-09-24 14:18] LABS: Abs Immature Grans 0.04 10^3/uL (0.0-0.06); Absolute Basophil Count 0.04 10^3/uL (0.0-0.2); Absolute Eosinophil Count 0.05 10^3/uL (0.0-0.7); Absolute Lymphocyte Count 1.43 10^3/uL (1.2-3.4); Absolute Monocyte Count 0.43 10^3/uL (0.1-0.8); Absolute Neutrophil Count 3.79 10^3/uL (1.2-6.7); Basophils % 0.7; Eosinophils % 0.9; HCT 38.7 % (36.0-46.0); HGB 12.8 g/dL (11.2-15.7); Immature Grans % 0.7; Lymphocytes % 24.7; MCH 29.9 pg (27.0-33.0); MCHC 33.1 % (32.0-36.0); MCV 90.4 fL (80-95); Monocytes % 7.4; Neutrophils % 65.6; Nucleated RBC 0 %; Platelet Count 219 10^3/uL (130-400); RBC 4.28 10^6/uL (3.93-5.22); RDW 13.2 % (11.7-14.6); RDW-SD 43.1 fL; WBC 5.78 10^3/uL (4.4-10.8)
[2021-09-24 14:36] LABS: ALT 27 U/L (14-59); AST 17 U/L (15-37); Albumin 3.8 g/dL (3.4-5.0); Alkaline Phosphatase 65 U/L (46-116); Anion Gap 8.3 mmol/L (3-11); BUN 16 mg/dL (7-18); Bilirubin, Total 0.2 mg/dL (0.2-1.0); CO2 26.7 mmol/L (21.0-32.0); CREATININE 0.8 mg/dL (0.55-1.02); Chloride 107 mmol/L (98-107); Glucose 146 mg/dL (74-106); Magnesium 2.3 mg/dL (1.8-2.4); Potassium 3.4 mmol/L (3.5-5.1); Sodium 142 mmol/L (136-145); Total Protein 7.1 g/dL (6.4-8.2); Troponin I < 50 ng/L (<or=60)
[2021-09-24] MEDS: Normal Saline 1,000 ML 1000 ML IV (15:08)
[2021-09-24] MEDS: Ciprofloxacin 250 MG TAB PO ×2 (17:23)
[2021-09-25 14:39] LABS: COVID-19 RT-PCR UVMMC Result Negative (Negative)
--- NOTE | 2021-09-26 08:13 | NUR.NOTE ---
left message for patient about her covid results
--- NOTE | 2021-09-26 18:23 | NUR.NOTE ---
Patient returned my call. Gave patient her negative covid results
== END 2021-09-24 17:34 | disposition home or self-care (01) ==
PROVIDERS: Emergency Provider Physician Assistant; PCP Nurse Practitioner Family
DX: R42 Dizziness and giddiness (principal); R00.2 Palpitations; N39.0 Urinary tract infection, site not specified; B96.89 Other specified bacterial agents as the cause of diseases classified elsewhere; Z20.822 Contact with and (suspected) exposure to COVID-19
CPT/HCPCS: 80053; 93005; 96360; 99283; 99284; U0003; 81003; 83735; 84484; 85025; 93010

== ENCOUNTER 2021-09-27 14:45 | Outpatient (REF) | payer BC, SELFPAY ==
[2021-09-27 21:28] LABS: Anion Gap 10.7 mmol/L (3-11); BUN 20 mg/dL (7-18); CO2 25.3 mmol/L (21.0-32.0); CREATININE 0.6 mg/dL (0.55-1.02); Calcium 9.2 mg/dL (8.5-10.1); Chloride 102 mmol/L (98-107); Glucose 82 mg/dL (74-106); Sodium 138 mmol/L (136-145); TSH (W/Ref FT4) 1.27 uIU/mL (0.36-3.74)
== END 2021-09-27 14:46 | disposition home or self-care (01) ==
LOC: NCHCN 14:45
PROVIDERS: PCP Nurse Practitioner Family; Visit Provider Nurse Practitioner Family
DX: R00.2 Palpitations (principal); R42 Dizziness and giddiness
CPT/HCPCS: 80048; 84443

== ENCOUNTER 2021-11-01 15:59 | Outpatient (REF) | payer BC, SELFPAY | END 2021-11-01 16:00 | disposition home or self-care (01) | LOC: NCHCN 15:59 | PROVIDERS: PCP Nurse Practitioner Family; Visit Provider Nurse Practitioner Family | DX: R30.0 Dysuria (principal) | CPT/HCPCS: 87086 ==

== ENCOUNTER 2021-11-11 00:47 | Outpatient (CLI) | payer BC, SELFPAY ==
--- NOTE | 2021-11-11 | DI.RAD_ITS ---
Exam(s) XR CERVICAL SPINE COMP 4-5V EXAM: XR CERVICAL SPINE COMP 4-5V CLINICAL HISTORY: DIZZINESS, NECK PAIN, M54.2,R42. TECHNIQUE: 2D digital imaging was performed. COMPARISON: No exams were available for comparison FINDINGS: BONES: No fracture or destructive lesion. Endplate osteophytes are seen from C 4 5 through C6-7. The re are mild facet joint degenerative changes. There is minimal neural foraminal encroachment on the left at C4-5 and C5-6. DISKS: Mild narrowing of the C C5-6 disc space. Moderate to severe narrowing of the C6-7 disc space. ALIGNMENT: Cervical spinal alignment is within normal limits. The odontoid and atlantoaxial articulat ions are normal. SOFT TISSUE: Normal. The lung apices are clear. IMPRESSION: Degenerative changes from C4-5 through C6-7. DATA REPOSITORY: RADIATION DOSE DELIVERED:
== END 2021-11-11 01:07 ==
PROVIDERS: PCP Nurse Practitioner Family; Visit Provider Nurse Practitioner Family
DX: R42 Dizziness and giddiness (principal); M54.2 Cervicalgia; M50.321 Other cervical disc degeneration at C4-C5 level; M50.323 Other cervical disc degeneration at C6-C7 level
CPT/HCPCS: 72050

== ENCOUNTER 2021-11-11 00:47 | Outpatient (CLI) | payer BC, SELFPAY ==
--- NOTE | 2021-11-11 | DI.MRI_ITS ---
Exam(s) MR BRAIN WO EXAM: MR BRAIN WO CLINICAL HISTORY: DIZZINESS,R42, ? TIA, NECK PAIN. TECHNIQUE: Multiplanar multisequence MRI of the brain was performed. CONTRAST MATERIAL: IV Contrast: None contrast COMPARISON: CT CT BRAIN NECK CTA from 09/19/2021 FINDINGS: VENTRICLES AND EXTRA AXIAL SPACES: Normal in size and morphology for the patient's age. HEMORRHAGE: None. CEREBRAL PARENCHYMA: No focus of restricted diffusion to suggest acute infarct. No space-occupying le grupo identified. MIDLINE SHIFT: None. BRAINSTEM/CEREBELLUM: No significant atrophy. Minimal white matter changes. There are a few scatter ed tiny punctate susceptibility artifacts consistent with microhemorrhage in both upper cerebral hem ispheres. VISUALIZED PARANASAL SINUSES/MASTOIDS: Clear. OTHER FINDINGS: Orbits and pituitary are unremarkable. IMPRESSION: Minimal white matter changes of microvascular disease. Punctate susceptibility artifacts could indic ate prior microhemorrhage could be related to hypertension versus cerebral amyloid angiopathy. DATA REPOSITORY:
== END 2021-11-11 01:07 ==
PROVIDERS: PCP Nurse Practitioner Family; Visit Provider Nurse Practitioner Family
DX: R42 Dizziness and giddiness (principal); M54.2 Cervicalgia; I67.89 Other cerebrovascular disease
CPT/HCPCS: 70551

== ENCOUNTER 2021-12-26 11:04 | Outpatient (REF) | payer BC, SELFPAY ==
--- NOTE | 2021-12-26 09:48 | PAPFT_PTH ---
PATIENT: Sherrill Watts LOC: [facility]#:[id number] AGE/SX: 66/F ROOM: RE12/26/[address]: Rupinder Farooq : 1955 BED: DIS: 12/26/2021 SPEC #: [id number] RECD: 12/26/21 15:25 STATUS: ARY SWANSON #: [id number] PEDRO: 12/26/21 09:[address]: Rupinder Farooq DEPT: [facility] Cytology RECD BY: Courtney Hadley Tissues: 1 - CX/ENDOCX FOR PAP SMEARS Procedures: PAP THIN PREP/[facility] Screening HPV DNA PROBE Comments: [id number] (CHLAMYDIA/GC)
[2021-12-27 14:44] LABS: Chlamydia Result Negative (Negative); GC Result Negative (Negative)
== END 2021-12-26 11:05 | disposition home or self-care (01) ==
LOC: NCHCN 11:04
PROVIDERS: PCP Nurse Practitioner Family; Visit Provider Nurse Practitioner Family
DX: Z11.3 Encounter for screening for infections with a predominantly sexual mode of transmission (principal); Z12.4 Encounter for screening for malignant neoplasm of cervix; Z11.51 Encounter for screening for human papillomavirus (HPV); Z00.00 Encounter for general adult medical examination without abnormal findings; Z01.419 Encounter for gynecological examination (general) (routine) without abnormal findings
CPT/HCPCS: 87491; 87591; 88142; 87624

== ENCOUNTER 2022-02-02 02:19 | Outpatient (CLI) | payer BC, SELFPAY ==
[2022-02-02 09:01] LABS: ALT 35 U/L (14-59); AST 20 U/L (15-37); Alkaline Phosphatase 61 U/L (46-116); Anion Gap 8.8 mmol/L (3-11); BUN 26 mg/dL (7-18); Bilirubin, Total 0.5 mg/dL (0.2-1.0); CO2 30.2 mmol/L (21.0-32.0); CREATININE 0.8 mg/dL (0.55-1.02); Chloride 103 mmol/L (98-107); Glucose 120 mg/dL (74-106); Sodium 142 mmol/L (136-145); Total Protein 7.3 g/dL (6.4-8.2)
== END 2022-02-02 02:20 | disposition home or self-care (01) ==
LOC: LBO 02:19
PROVIDERS: Urology; PCP Nurse Practitioner Family; Visit Provider Nurse Practitioner Family
DX: N28.89 Other specified disorders of kidney and ureter (principal)
CPT/HCPCS: 36415; 80053

== ENCOUNTER → 2022-02-09 00:26 | Outpatient (CLI) | payer BC, SELFPAY ==
--- NOTE | 2022-02-09 | DI.RAD_ITS ---
Exam(s) XR CHEST 2V PA LATERAL EXAM: XR CHEST 2V PA LATERAL CLINICAL HISTORY: LT RENAL MASS, N28.89,? LUNG NODULES. TECHNIQUE: 2D digital imaging was performed. COMPARISON: CR,XR XR CHEST 2V PA LATERAL from 09/19/2021 FINDINGS: 2 views: Heart size is normal. The mediastinum is not widened. Lungs are clear. No infiltrates nor pleural effusions. IMPRESSION: No acute pulmonary findings.No significant change compared to 09/19/2021 DATA REPOSITORY: RADIATION DOSE DELIVERED:
--- NOTE | 2022-02-09 14:45 | DI.MRI_ITS ---
Exam(s) MR ABDOMEN WO/W EXAM: MR ABDOMEN WO/W CLINICAL HISTORY: LT RENAL MASS,? CA,? CHANGE IN SIZE,CHARACTER,N28.89 TECHNIQUE: Multiplanar multisequence MRI was performed with both pre and post contrast infused seque nces. Contrast injected sequences were performed following IV injection of 15 cc of Dotarem. COMPARISON: CT CT ABDOMEN PELVIS W from 06/10/2020 06/10/2020 was reviewed FINDINGS: VISUALIZED LUNG BASES: No pleural effusions evident. There is no ascites evident. LIVER: No focal hepatic lesions. BILIARY: There is no obvious gallbladder pathology. The CBD is not dilated. PANCREAS: There is no evidence of pancreatic mass nor dilatation of the pancreatic duct. SPLEEN: Spleen is not enlarged and there are no intrasplenic lesions.Splenic and portal veins are pat ent ADRENALS: There are no significant adrenal masses. KIDNEYS: Tiny cortical cysts are noted in the right kidney.In the left kidney there is a dominant inf erior pole cyst again noted which measures 8 by 7.5 cm., similar in size to the prior CT scan reading of May 2020. In the superior pole of the same-left kidney there is again noted a small partial ly exophytic nodule which measures approximately 10 x 11 millimeter, not exhibiting typical signal ch aracteristics of a simple cyst but not increased in size from the CT scan of over 1 year ago. It als o does not follow fat signal on all sequences to suggest that it is a an angiomyolipoma. It exhibits a thin wall which enhances but does not exhibit internal enhancement ABDOMINAL AORTA: Not enlarged and there is no significant para-aortic adenopathy. ANTERIOR ABDOMINAL WALL/GI: There is no evidence of significant anterior abdominal wall hernia in the field of view of this study.Is no evidence of obvious bowel obstruction. OSSEOUS: Benign intraosseous hemangioma is noted in the left side of L3 vertebral body. IMPRESSION: 1. The partially exophytic small 1 cm nodule in the superior pole of the left kidney is unchanged in size from CT scan of 06/10/2020. However, it does not have signal characteristics of a typical cyst nor angiomyolipoma. May represent a hemorrhagic cyst or other pathology. I feel that dedicated ultr asound examination of this finding may possibly add specificity. 2. Unchanged large simple unilocular cyst in the inferior pole the same-left kidney, measuring 8 cm. 3. No hydronephrosis on either side. Other findings as described above. DATA REPOSITORY:
== END ==
PROVIDERS: PCP Nurse Practitioner Family; Visit Provider Urology
DX: N28.89 Other specified disorders of kidney and ureter (principal); N28.1 Cyst of kidney, acquired
CPT/HCPCS: 74183; 71046

== ENCOUNTER 2022-10-17 01:40 | Outpatient (CLI) | payer BC, SELFPAY ==
--- NOTE | 2022-10-17 08:25 | DI.MAMMO_ITS ---
Exam(s) MAMMO SCREENING EXAM: MAMMO SCREENING CLINICAL HISTORY: SCREENING, Z12.31 TECHNIQUE: Bilateral full field digital CC and MLO mammographic images were obtained with 3D tomosyn thesis and utilizing computer aided detection (CAD). COMPARISON: Available for comparison. FINDINGS: Masses/Architectural Distortion: There are stable nodules in the breast. No suspicious nodules or ar eas of architectural distortion are present. Microcalcifications: No suspicious pleomorphic-type are seen. Skin Thickening/Nipple Retraction: None. IMPRESSION: 1. No significant interval change with no specific features of malignancy noted. 2. Unless there is more urgent need, screening mammography is recommended, as per [employer] guidelines. BI-RADS Category 2 - Benign Findings Breast Density - Category B - Scattered areas of fibroglandular density Breast density category C or D implies that the patient has dense breast tissue. Dense breast tissue is very common and is not abnormal but dense breast tissue can make it harder to find cancer on a ma mmogram. Also, dense breast tissue may increase their breast cancer risk. This information about the result of the mammogram report was provided to the patient to raise their awareness. Use this report when you speak with the patient about their risks for breast cancer, which includes their family hist ory. At that time, you may recommend for more screening tests (Ultrasound or MRI) as they might be us eful based on their risk. A negative radiographic report should not delay biopsy if a dominant or clinically suspicious mass is present. Up to ten percent of cancers are not identified on mammography. A negative report may reinforce clinical impression. Adenosis and dense breasts may obscure an underlying neoplasm. False positive reports average 6 to 10%. Patient will receive a letter notifying them of these results.
== END 2022-10-17 02:00 ==
LOC: DI 01:40
PROVIDERS: PCP Nurse Practitioner Family; Visit Provider Nurse Practitioner Family
DX: Z12.31 Encounter for screening mammogram for malignant neoplasm of breast (principal)
CPT/HCPCS: 77063; 77067

== ENCOUNTER 2022-11-06 16:16 | Outpatient (REF) | payer BC, SELFPAY ==
[2022-11-06 22:02] LABS: Anion Gap 9.4 mmol/L (3-11); BUN 20 mg/dL (7-18); CO2 26.6 mmol/L (21.0-32.0); CREATININE 0.7 mg/dL (0.55-1.02); Calcium 9.1 mg/dL (8.5-10.1); Chloride 106 mmol/L (98-107); Estimated GFR 95.32 (mL/min/1.73m2); Glucose 111 mg/dL (74-106); Magnesium 2.2 mg/dL (1.8-2.4); Potassium 3.9 mmol/L (3.5-5.1); Sodium 142 mmol/L (136-145); TSH (W/Ref FT4) 1.23 uIU/mL (0.36-3.74)
== END 2022-11-06 16:17 | disposition home or self-care (01) ==
LOC: NCHCN 16:16
PROVIDERS: PCP Nurse Practitioner Family; Visit Provider Nurse Practitioner Family
DX: R00.2 Palpitations (principal)
CPT/HCPCS: 80048; 83735; 84443

== ENCOUNTER 2022-11-16 08:25 | Outpatient (RCR) | payer BC, SELFPAY ==
--- NOTE | 2022-11-16 08:30 | HOLTER_ITS ---
APPROVED REPORT Conclusion This is a 48-hour Holter monitor Patient was in atrial flutter throughout the recording with an average heart rate of 73. Minimum was 48, maximum 142 There were rare ventricular ectopic beats There was no high-grade AV block, no pauses greater than 3 seconds Symptoms were reported which overall corresponded to atrial flutter with controlled rates
== END 2022-11-19 23:59 | disposition home or self-care (01) ==
LOC: CARDOPNVT 08:25
PROVIDERS: PCP Nurse Practitioner Family; Visit Provider Nurse Practitioner Family
DX: R00.2 Palpitations (principal); I48.92 Unspecified atrial flutter
CPT/HCPCS: 93225

== ENCOUNTER 2022-11-24 07:00 | Outpatient (RCR) | payer BC, SELFPAY | END 2022-11-24 07:20 | LOC: CARDOPNVT 07:00 | PROVIDERS: PCP Nurse Practitioner Family; Visit Provider Nurse Practitioner Family | DX: R00.2 Palpitations (principal); I48.92 Unspecified atrial flutter | CPT/HCPCS: 93226 ==

== ENCOUNTER 2022-12-04 09:51 | Outpatient (CLI) | payer BC, SELFPAY | END 2022-12-04 09:52 | disposition home or self-care (01) | PROVIDERS: PCP Nurse Practitioner Family; Visit Provider Nurse Practitioner Family | DX: R00.2 Palpitations (principal) | CPT/HCPCS: 93246 ==

== ENCOUNTER 2023-01-08 10:23 | Outpatient (CLI) | payer BC, SELFPAY ==
--- NOTE | 2023-01-08 10:30 | W.CARDEVENT ---
Date of service: 01/08/23 Time of Service: 10:30 Cardiac Event Recorder Referring Provider:: Rupinder Farooq Indications:: Atrial flutter and palpitations Cardiac Event Note: This is a cardiac event monitor. Patient was monitored for 13 days and 10 hours Rhythm throughout was atrial flutter. Average heart rate was 79, minimum was 38, maximum 167 There were rare isolated ventricular ectopic beats Patient symptoms were reported. They correlated with atrial flutter heart rates in the 60s and 70s, as well as heart rates of approximately 120
== END 2023-01-08 10:24 | disposition home or self-care (01) ==
LOC: CARDOPNVT 10:23
PROVIDERS: PCP Nurse Practitioner Family; Visit Provider Internal Medicine Cardiovascular Disease
DX: I48.92 Unspecified atrial flutter (principal)

== ENCOUNTER 2023-01-24 02:02 | Outpatient (CLI) | payer BC, SELFPAY ==
--- NOTE | 2023-01-24 16:15 | DI.US_ITS ---
APPROVED REPORT EXAM: Comprehensive 2D, Doppler, and color-flow Echocardiogram Patient Location: Out-Patient Glass Edger: Miesha Vela RDCS (AE) Indications: Atrial flutter, Palpitations Other Information Study Quality: Adequate Conclusion Normal left ventricular wall thickness and chamber size. Ejection fraction is 60%. Wall motion is n ormal Normal right ventricular size and systolic function Left atrium is mildly dilated. Right atrial size is normal Trileaflet aortic valve without stenosis or regurgitation Normal mitral valve with mild regurgitation Normal tricuspid valve with mild regurgitation. Estimated right ventricular systolic pressure is 22 mmHg Wall motion Left Ventricle The left ventricle is normal size. The left ventricular systolic function is normal. The left ventric ular ejection fraction is within the normal range. There is normal left ventricular wall thickness. T here is normal LV segmental wall motion. There is no ventricular septal defect visualized. LVEF is 60 %. Right Ventricle The right ventricle is normal size. The right ventricular systolic function is normal. The RVSP is 22 .4 mmHg. Atria Left atrium is mildly dilated. The right atrium size is normal. The interatrial septum is intact with no evidence for an atrial septal defect. Aortic Valve The aortic valve is normal in structure. Aortic valve is trileaflet. There is no aortic valvular sten osis. No aortic regurgitation is present. Mitral Valve The mitral valve is normal in structure. No evidence of mitral valve stenosis. Mild mitral regurgitat ion. Tricuspid Valve The tricuspid valve is normal in structure. There is no tricuspid valve stenosis. Mild tricuspid regu rgitation. Pulmonic Valve The pulmonary valve is normal in structure. There is no pulmonic valvular stenosis. Trivial pulmonic regurgitation. Great Vessels The aortic root is normal in size. The ascending aorta is normal in size. Aortic arch is normal in ca liber. IVC is normal in size and collapses >50% with inspiration. Pericardium There is no pericardial effusion. 2D Dimensions IVSD d PLAX 0.89 cm F: 0.6-1.0 LV Vol A2C d MOD 106.6 mL LVPW d PLAX 0.90 cm F: 0.6 - 1.0 LV Vol A4C d MOD 107.3 mL LVID d PLAX 4.63 cm F: 3.8 - 5.2 LA vol/ BSA A2C s A-L 38.5 mL/m2 LVDs 3.20 cm F: 2.2 - 3.5 LA vol/ BSA A4C s A-L 36.6 mL/m2 Ao Root d 3.21 cm F: 2.7 - 3.3 LA Vol/ BSA Biplane s A-L 37.7 mL/m2 RA Area A4C 17.28 cm2 LA Area A4C s MOD 22.63 cm2 RA Vol/ BSA A4C s A-L 26.2 mL/m2 LA Area A2C s MOD 23.14 cm2 Ao Asc Diam d 2.91 cm F: 2.3 - 3.1 LV EF A4C MOD 59.7 % LV EF Teichholz 58.2 % LV EF A2C MOD 59.0 % LVEF (Rolle's) 59.25 % F: 54 - 74 LV EF Biplane MOD 59.3 % LV Volume 82.43 mL F: 46 - 106 SV 63.39 mL LV Volume Index 44.55 mL/m2 F: 29 - 61 SV Index 34.30 mL/m2 LV Vol Biplane MOD 107.0 mL FS 30.60 % M-Mode TAPSE 1.73 cm (M/F) >1.7 LV Diastology MV E' medial 0.137 (>0.07 m/s) MV E Vmax 1.03 (0.4-1.3 m/s) LV E/e MED 7.50 (<14) MV E' lateral 0.133 (>0.1 m/s) LV E/e LAT 7.70 (<14) MV E/E' medial 7.52 MV E/E' lateral 7.73 Aortic Valve LVOT Area 3.21 cm2 AoV Area Vmax 2.67 cm2 LVOT Vmax 1.07 m/s AoV Area/ BSA (Vmax) 1.44 cm2/m2 LVOT Mean Shar. 0.67 m/s TRISTIN Mean Shar. 2.31 cm2 LVOT Peak Grad 4.6 mmHg TRISTIN Mean Shar. Index 1.25 cm2/m2 LVOT Mean Grad 2.1 mmHg LVOT VTI 0.217 m LVOT Diam s 2.00 cm AoV Vmax 1.29 m/s Velocity Ratio 0.83 AoV Mean Shar. 0.92 m/s AoV Peak Grad 6.6 mmHg LVOT SV 69.44 mL AoV Mean Grad 3.8 mmHg AoV VTI 0.233 m AoV Area VTI 2.98 cm2 AoV Area/ BSA (VTI) 1.61 cm/m2 Mitral Valve MV DT 176 (160-240 msec) MR Vmax 5.06 m/s MV PHT 51 msec MR VTI 1.652 m MV Area PHT 4.31 cm2 MR Peak Grad 102.4 mmHg MV VTI 0.365 m MR Mean Grad 71.0 mmHg MV Area VTI 1.91 (4.0-6.0 cm2) Pulmonary Valve PV Vmax 0.74 (0.5-1.5 m/s) RVOT Peak Gr. 1.22 mmHg PV Peak Grad 2.2 mmHg RVOT Mean Gr. 0.60 mmHg PV Mean Grad 1.1 mmHg RVOT VTI 0.091 m PV VTI 0.142 m RVOT Vmax 0.55 m/s Tricuspid Valve TR Peak Grad 19.3 mmHg TR Vmax 2.20 m/s RA Pressure 3.00 mmHg RVSP (TR) 22.4 mmHg
== END 2023-01-24 02:22 ==
LOC: DI 02:05
PROVIDERS: PCP Nurse Practitioner Family; Visit Provider Nurse Practitioner Family
DX: I48.92 Unspecified atrial flutter (principal); R00.2 Palpitations
CPT/HCPCS: 93306

== ENCOUNTER 2023-01-26 08:36 | Outpatient (CLI) | payer BC, SELFPAY ==
--- NOTE | 2023-01-26 08:30 | RT.EKG_ITS ---
APPROVED REPORT Exam: Resting ECG Reason for Exam: hx of atrial flutter Patient Location: O HR:67 bpm ECG Measurements Heart Rate 67 AXIS DE [id number] P [id number] QRSd 157 QRS 36 QT 453 T 69 QTc 479 Conclusion Atrial flutter...A-rate 234 Poor R wave progression
== END 2023-01-26 08:37 | disposition home or self-care (01) ==
LOC: DI.CARD 08:36
PROVIDERS: PCP Nurse Practitioner Family; Visit Provider Internal Medicine Cardiovascular Disease
DX: I48.92 Unspecified atrial flutter (principal)
CPT/HCPCS: 93010

== ENCOUNTER → 2023-04-19 04:06 | Outpatient (CLI) | payer BC, SELFPAY ==
--- NOTE | 2023-04-19 | DI.DEXA_ITS ---
Exam(s) XR DEXA BONE DENSITY W/WO JANEEN EXAM: XR DEXA BONE DENSITY W/WO JANEEN CLINICAL HISTORY: SCREENING FOR OSTEOPOROSIS IN POSTMENOPAUSAL WOMAN,Z78.0 TECHNIQUE: Routine DEXA evaluation of the lumbar spine, hip, or forearm. COMPARISON: No exams were available for comparison FINDINGS: Performed on a Hologic unit. Lateral image: No compression fracture evident. Lumbar Spine total T-score: 0.5 Hip total T-score:-0.3 Independent reading at the level of the femoral neck yields T-score of -0.5 Forearm total T-score: 0.2 IMPRESSION: Bone mineral density measures in the normal range. Fracture risk is low. Note: Any spine fracture indicates 5x risk for subsequent spine fracture and 2x risk for subsequent h ip fracture. World Health Organization criteria for BMD interpretation classify patients: Normal...... T- Score at or above -1.0 Osteopenic... T- Score between -1.0 and -2.5 Osteoporosis... T-Score at or below -2.5
== END ==
PROVIDERS: PCP Nurse Practitioner Family; Visit Provider Nurse Practitioner Family
DX: Z13.820 Encounter for screening for osteoporosis (principal); Z78.0 Asymptomatic menopausal state
CPT/HCPCS: 77080

== ENCOUNTER → 2023-05-07 03:58 | Outpatient (CLI) | payer BC, SELFPAY ==
--- NOTE | 2023-05-07 09:00 | DI.RAD_ITS ---
Exam(s) XR FOOT LT COMPLETE EXAM: XR FOOT LT COMPLETE CLINICAL HISTORY: m79.672, lt foot pain when standing. TECHNIQUE: 2D digital imaging was performed of the left foot. Three images were obtained. AP, obli que and lateral views were obtained. COMPARISON: CR LEFT ANKLE COMPLETE from 01/28/2016 FINDINGS: BONES: No acute fracture is present. No bony destructive lesion is seen. There is splaying of the 2nd and 3rd toes. There does appear to be a tiny plantar calcaneal spur. There are mild hammertoe defo rmities of the 2nd and 3rd toes. JOINTS: No dislocation present. There is mild narrowing of the 1st MTP joint space. The joint spaces are otherwise well maintained. SOFT TISSUE: Normal. IMPRESSION: No acute abnormality. DATA REPOSITORY: RADIATION DOSE DELIVERED:
--- NOTE | 2023-05-07 09:00 | DI.RAD_ITS ---
Exam(s) XR FOOT RT COMPLETE EXAM: XR FOOT RT COMPLETE CLINICAL HISTORY: Rt foot pain when standing,m79.671. TECHNIQUE: 2D digital imaging was performed of the right foot. Three images were obtained. AP, obl ique and lateral views were obtained. COMPARISON: No exams were available for comparison FINDINGS: BONES: No acute fracture is present. No bony destructive lesion is seen. There are 2nd and 3rd hammer toe deformities. JOINTS: No dislocation present. Mild degenerative changes are seen at the 1st MTP joint with joint sp michael narrowing and osteophytes. SOFT TISSUE: Normal. IMPRESSION: Mild degenerative changes of the foot. DATA REPOSITORY: RADIATION DOSE DELIVERED:
== END ==
PROVIDERS: PCP Nurse Practitioner Family; Visit Provider Podiatrist
DX: M79.671 Pain in right foot (principal); M79.672 Pain in left foot
CPT/HCPCS: 73630

== ENCOUNTER 2023-05-14 19:42 | Outpatient (REF) | payer BC, SELFPAY | END 2023-05-14 19:43 | disposition home or self-care (01) | LOC: LBN 19:42 | PROVIDERS: PCP Nurse Practitioner Family; Visit Provider Advanced Practice Midwife | DX: N89.8 Other specified noninflammatory disorders of vagina (principal); N93.9 Abnormal uterine and vaginal bleeding, unspecified | CPT/HCPCS: 87480; 87510; 87660 ==

== ENCOUNTER 2023-06-27 13:04 | Outpatient (CLI) | payer BC, SELFPAY ==
--- NOTE | 2023-06-27 13:00 | RT.EKG_ITS ---
APPROVED REPORT Exam: Resting ECG Reason for Exam: a flutter Patient Location: O HR:90 bpm ECG Measurements Heart Rate 90 AXIS [place] [id number] P [id number] QRSd 103 QRS 81 QT 497 T 73 QTc 609 Conclusion Atrial flutter...A-rate 234
== END 2023-06-27 13:05 | disposition home or self-care (01) ==
LOC: DI.CARD 13:06
PROVIDERS: PCP Nurse Practitioner Family; Visit Provider Internal Medicine Cardiovascular Disease
DX: I48.92 Unspecified atrial flutter (principal)
CPT/HCPCS: 93010

== ENCOUNTER 2023-07-26 15:05 | Outpatient (CLI) | payer BC, SELFPAY ==
[2023-07-26 16:59] LABS: Abs Immature Grans 0.02 10^3/uL (0.0-0.06); Absolute Basophil Count 0.04 10^3/uL (0.0-0.2); Absolute Eosinophil Count 0.13 10^3/uL (0.0-0.7); Absolute Lymphocyte Count 1.99 10^3/uL (1.2-3.4); Absolute Monocyte Count 0.34 10^3/uL (0.1-0.8); Absolute Neutrophil Count 3.25 10^3/uL (1.2-6.7); Basophils % 0.7; Eosinophils % 2.3; HCT 39.7 % (36.0-46.0); Immature Grans % 0.3; Lymphocytes % 34.5; MCHC 32.7 % (32.0-36.0); MCV 92 fL (80-95); MPV 9.5 fL (8.0-11.0); Monocytes % 5.9; Neutrophils % 56.3; Platelet Count 228 10^3/uL (130-400); RBC 4.33 10^6/uL (3.93-5.22); RDW 13.6 % (11.7-14.6); RDW-SD 46.5 fL; WBC 5.77 10^3/uL (4.4-10.8)
[2023-07-26 17:11] LABS: INR 1.1 (0.9-1.1)
[2023-07-26 18:06] LABS: ALT 42 U/L (14-59); AST 21 U/L (15-37); Albumin 4.1 g/dL (3.4-5.0); Alkaline Phosphatase 63 U/L (46-116); Anion Gap 8.5 mmol/L (3-11); BUN 17 mg/dL (7-18); Bilirubin, Total 0.4 mg/dL (0.2-1.0); CO2 30.5 mmol/L (21.0-32.0); CREATININE 0.9 mg/dL (0.55-1.02); Chloride 101 mmol/L (98-107); Estimated GFR 70.07 (mL/min/1.73m2); Glucose 156 mg/dL (74-106); Potassium 3.8 mmol/L (3.5-5.1); Sodium 140 mmol/L (136-145); TSH (W/Ref FT4) 1.13 uIU/mL (0.36-3.74); Total Protein 7.3 g/dL (6.4-8.2)
== END 2023-07-26 15:06 | disposition home or self-care (01) ==
PROVIDERS: PCP Nurse Practitioner Family; Visit Provider Internal Medicine Cardiovascular Disease
DX: I48.3 Typical atrial flutter (principal)
CPT/HCPCS: 36415; 80053; 84443; 85025; 85610

== ENCOUNTER 2023-09-25 22:03 | Outpatient (REF) | payer BC, SELFPAY | END 2023-09-25 22:04 | disposition home or self-care (01) | LOC: LBN 22:03 | PROVIDERS: PCP Nurse Practitioner Family; Visit Provider Nurse Practitioner Family | DX: N76.0 Acute vaginitis (principal); N30.01 Acute cystitis with hematuria | CPT/HCPCS: 87077; 87086; 87186; 87480; 87510; 87660 ==

== ENCOUNTER 2023-09-26 08:40 | Outpatient (CLI) | payer BC, SELFPAY ==
--- NOTE | 2023-09-26 08:30 | RT.EKG_ITS ---
APPROVED REPORT Exam: Resting ECG Reason for Exam: aflutter, s/p ablation Patient Location: O HR:73 bpm ECG Measurements Heart Rate [address] 171 P 88 QRSd 97 QRS 58 QT 416 T 46 QTc 459 Conclusion Sinus rhythm...normal P axis, V-rate 50- 99 Probable left atrial enlargement...P >50mS, <-0.10mV V1
== END 2023-09-26 08:41 | disposition home or self-care (01) ==
LOC: DI.CARD 08:41
PROVIDERS: PCP Nurse Practitioner Family; Visit Provider Internal Medicine Cardiovascular Disease
DX: I48.92 Unspecified atrial flutter (principal)
CPT/HCPCS: 93010

== ENCOUNTER 2023-10-11 05:47 | Outpatient (CLI) | payer BC, SELFPAY ==
[2023-10-11 16:59] LABS: Hemoglobin A1C 5.9 % (<5.7)
[2023-10-11 17:51] LABS: Calculated LDL 104 mg/dL (<100); Cholesterol 199 mg/dL (<200); HDL Cholesterol 46 mg/dL (40-60); Triglyceride 248 mg/dL (<150)
== END 2023-10-11 05:48 | disposition home or self-care (01) ==
LOC: LBO 05:47
PROVIDERS: Advanced Practice Midwife; PCP Nurse Practitioner Family; Visit Provider Nurse Practitioner Family
DX: Z01.419 Encounter for gynecological examination (general) (routine) without abnormal findings (principal)
CPT/HCPCS: 36415; 80061; 83036

== ENCOUNTER → 2023-11-26 04:40 | Outpatient (CLI) | payer BC, SELFPAY ==
--- NOTE | 2023-11-26 12:16 | DI.MAMMO_ITS ---
Exam(s) MAMMO SCREENING EXAM: MAMMO SCREENING CLINICAL HISTORY: Z12.31 Encounter for screening mammogram for malignant neoplasm of breast TECHNIQUE: Mammograms were interpreted according to the usual protocol including computer analysis w [employer] CAD system, tomosynthesis and C-view imaging. COMPARISON: 2013 through 2022 FINDINGS: The breasts are composed of scattered fibroglandular densities, Breast Density category B. No suspicious masses or suspicious microcalcifications are seen. No change in areas of nodularity in the upper outer quadrant of the right breast. No skin thickening or abnormal axillary lymph nodes are seen. There has been no significant change from prior exams. IMPRESSION: BI-RADS Category 2 - Negative Mammogram with benign findings. Yearly screening mammography is recomm ended. Breast Density - Category B, scattered fibroglandular densities. A negative radiographic report should not delay biopsy if a dominant or clinically suspicious mass is present. Up to ten percent of cancers are not identified on mammography. A negative report may reinforce clinical impression. Adenosis and dense breasts may obscure an underlying neoplasm. False positive reports average 6 to 10%. Patient will receive a letter notifying them of these results.
== END ==
PROVIDERS: PCP Nurse Practitioner Family; Visit Provider Nurse Practitioner Family
DX: Z12.31 Encounter for screening mammogram for malignant neoplasm of breast (principal)
CPT/HCPCS: 77063; 77067

== ENCOUNTER 2023-12-26 10:52 | Outpatient (REF) | payer BC, SELFPAY ==
[2023-12-26 14:45] LABS: ALT 39 U/L (14-59); AST 25 U/L (15-37); Albumin 4.1 g/dL (3.4-5.0); Alkaline Phosphatase 70 U/L (46-116); Anion Gap 9.3 mmol/L (3-11); BUN 18 mg/dL (7-18); Bilirubin, Total 0.5 mg/dL (0.2-1.0); CO2 28.7 mmol/L (21.0-32.0); CREATININE 0.8 mg/dL (0.55-1.02); Calcium 9.2 mg/dL (8.5-10.1); Calculated LDL 47 mg/dL (<100); Chloride 104 mmol/L (98-107); Cholesterol 125 mg/dL (<200); Estimated GFR 80.71 (mL/min/1.73m2); Glucose 120 mg/dL (74-106); HDL Cholesterol 51 mg/dL (40-60); Potassium 3.8 mmol/L (3.5-5.1); Sodium 142 mmol/L (136-145); Total Protein 6.8 g/dL (6.4-8.2); Triglyceride 138 mg/dL (<150)
== END 2023-12-26 10:53 | disposition home or self-care (01) ==
LOC: NCHCN 10:52
PROVIDERS: PCP Nurse Practitioner Family; Visit Provider Nurse Practitioner Family
DX: Z91.89 Other specified personal risk factors, not elsewhere classified (principal)
CPT/HCPCS: 80053; 80061

== ENCOUNTER 2024-02-08 20:12 | Emergency (ER) | payer BC, SELFPAY ==
[2024-02-08] VITALS (23 sets, daily range): BP systolic 118–173; BP diastolic 64–123; PULSE 62–95; RESP 14–26; TEMP 36.2; O2SAT 94–97
--- NOTE | 2024-02-08 20:00 | RT.EKG_ITS ---
APPROVED REPORT Exam: Resting ECG Reason for Exam: A-fib Patient Location: E HR:92 bpm ECG Measurements Heart Rate 92 AXIS IN [id number] P [id number] QRSd 99 QRS 49 QT 384 T 63 QTc 476 Conclusion Atrial fibrillation...V-rate 69-110, irreg A-activity
--- NOTE | 2024-02-08 20:15 | DI.CT_ITS ---
Exam(s) CT CHEST PE CTA EXAM: CT CHEST PE CTA CLINICAL HISTORY: pleuritic chest pain,?PE. TECHNIQUE: Imaging Protocol: CT angiography of the chest was performed using pulmonary embolus kenroy col. Multi planar reconstructions were performed. CONTRAST MATERIAL: Intravenous: Omnipaque 350 Contrast volume: 100 cc COMPARISON: CT CT BRAIN NECK CTA from 09/19/2021 FINDINGS: CHEST: PULMONARY ARTERIES: There are no intraluminal filling defects to suggest acute pulmonary emboli. LUNGS: There are no infiltrates nor evidence of pulmonary infarction.. There are no pleural effusions . There is a 3 millimeter subpleural nodule in the lateral basal segment of the left lower lobe (ser ies 10/image 73). No focal findings in the trachea and mainstem bronchi. MEDIASTINUM: There is no hilar nor mediastinal adenopathy. Visualized thyroid unremarkable.Small hiat al hernia noted. CARDIAC: Heart size is upper normal. There is no pericardial effusion.Caliber of the thoracic aorta is within normal limits. No evidence of aortic dissection. There is no significant shift of the inte rventricular septum. PARTIALLY VISUALIZED UPPERMOST ABDOMEN: No obvious findings OSSEOUS: There are intraosseous hemangioma is noted in the T8 and T9 vertebral bodies. no fractures i n the vertebral bodies evident. Also no rib fractures evident.. IMPRESSION: 1. No evidence of acute pulmonary emboli. No evidence of pulmonary infarction.No pleural effusions. Small 3 millimeters subpleural nodule left lower lobe noted. Recommend follow-up CT scan in 1 year. 2. No evidence of aortic dissection nor pericardial effusion. 3. Small hiatal hernia noted. RADIATION DOSE DELIVERED: Total DLP DATA REPOSITORY: All CT scans at this facility are submitted to the National Radiology Data Registry (NRDR) Dose Index Registry (DIR) with the [employer] (ACR). RADIATION OPTIMIZATION: All CT scans at this facility use at least one of these dose optimization te chniques: automated exposure control; mA and/or kV adjustment per patient size (includes targeted exa ms where dose is matched to clinical indication); or iterative reconstruction.
--- NOTE | 2024-02-08 20:24 | ED.GENADUL_ITS ---
Discharge Plan Disposition Patient Disposition: Home Condition: Stable Discharge Details Clinical Impression: Atrial fibrillation, Chest pain Primary Care Provider: Rupinder Farooq ED Provider: Ron Brown Home Meds and New Rx's Prescriptions: New Eliquis 5 mg tablet 5 mg PO BID Qty: 60 0RF metoprolol succinate 25 mg tablet extended release 24 hr 25 mg PO DAILY Qty: 30 0RF Continued cholecalciferol (vitamin D3) 1,000 unit capsule 1,000 unit PO DAILY Estring 2 mg (7.5 mcg /24 hour) ring 1 vag ring vaginal [id number] Qty: 1 4RF glucosamine sulfate 2KCl 1,000 MG tablet 1,000 mg PO DAILY multivitamin [Daily Multi-Vitamin] 1 EACH tablet 1 ea PO DAILY melatonin 3 MG tablet 3 mg PO DAILY magnesium 250 mg tablet 500 mg PO DAILY meclizine 12.5 mg tablet 12.5 mg PO TID PRN sumatriptan succinate [Imitrex] 50 mg tablet 50 mg PO PRN amlodipine 5 MG tablet 5 mg PO DAILY atorvastatin 10 mg tablet 10 mg PO DAILY psyllium husk [Fiber (psyllium husk)] 0.4 gram capsule 0.4 g PO DAILY Probiotic 3 billion cell capsule 3,000 mmu cells PO DAILY Rx Instructions: administer with a meal acetaminophen [Tylenol Extra Strength] 500 mg Tablet 1,000 mg PO PRN PRN Discharge Instructions Additional Instructions: You were found to be in atrial fibrillation. Your lab work and imaging did not show any concerning findings. You are being restarted on Eliquis, and also metoprolol to help keep your heart rate under control. Follow-up with your primary care provider and cloth bleaching range tender within 1 to 2 weeks. Have a discussion if your Eliquis prescription should be extended further. If you feel more ill, have severe chest pain or feel your heart rates are consistently over 110 return to the emergency department for reevaluation HPI General Date/Time Provider Initiated Documentation: 02/08/24 20:15 . Limitations to Documentation: no limitations . Information obtained by: patient . History of Present Illness 68 year old F presents to the emergency department with the chief complaint of palpitations, described as mild, Patient started experiencing this hour(s) (3) and it has been constant. No relieving factors improve symptom(s), No exacerbating factors reported . Patient notes chest pain; denies fever/chills and shortness of breath. Patient did receive the following treatments prior to arrival, none Related Data Home Medications ?Medication ?Instructions ?Recorded ?Confirmed amlodipine 5 mg tablet 5 mg PO DAILY 01/13/14 02/08/24 glucosamine sulfate 2KCl 1,000 mg 1,000 mg PO DAILY 01/18/15 02/08/24 tablet melatonin 3 mg tablet 3 mg PO DAILY 01/18/15 02/08/24 multivitamin (Daily Multi-Vitamin 1 ea PO DAILY 01/18/15 02/08/24 tablet) cholecalciferol (vitamin D3) 25 1,000 unit PO DAILY 09/02/18 02/08/24 mcg (1,000 unit) capsule acetaminophen 500 mg tablet 1,000 mg PO PRN PRN 09/16/18 02/08/24 (Tylenol Extra Strength) magnesium 250 mg tablet 500 mg PO DAILY 12/25/22 02/08/24 meclizine 12.5 mg tablet 12.5 mg PO TID PRN 12/25/22 02/08/24 estradiol 2 mg (7.5 mcg/24 hour) 1 vag ring vaginal [id number] #1 ea 05/16/23 02/08/24 vaginal ring (Estring) sumatriptan succinate 50 mg tablet 50 mg PO PRN 06/19/23 02/08/24 (Imitrex) apixaban 5 mg tablet (Eliquis) 5 mg PO BID #60 tabs 02/08/24 atorvastatin 10 mg tablet 10 mg PO DAILY 02/08/24 02/08/24 lactobacillus combination no.4 3 3,000 mmu cells PO DAILY 02/08/24 02/08/24 billion cell capsule (Probiotic) metoprolol succinate 25 mg 25 mg PO DAILY #30 tabs 02/08/24 tablet,extended release 24 hr psyllium husk 0.4 gram capsule 0.4 g PO DAILY 02/08/24 02/08/24 (Fiber (psyllium husk)) Previous Rx's ?Medication ?Instructions ?Recorded estradiol 2 mg (7.5 mcg/24 hour) 1 vag ring vaginal [id number] #1 ea 05/16/23 vaginal ring (Estring) apixaban 5 mg tablet (Eliquis) 5 mg PO BID #60 tabs 02/08/24 metoprolol succinate 25 mg 25 mg PO DAILY #30 tabs 02/08/24 tablet,extended release 24 hr Allergies Allergy/AdvReac Type Severity Reaction Status Date / Time Penicillins Allergy Intermediate Hives Verified 02/08/24 20:18 sulfamethoxazole (From Allergy Intermediate Other (See Verified 02/08/24 20:18 Bactrim) Comment) trimethoprim (From Bactrim) Allergy Intermediate Other (See Verified 02/08/24 20:18 Comment) General Stated Complaint: Arrhythmia JOE: 3 Review of Systems All systems reviewed & are unremarkable except as noted in HPI and below Constitutional Constitutional: Denies chills, Denies fever(s) and Denies weakness Cardiovascular Cardiovascular: Reports chest pain and Denies dyspnea Respiratory Respiratory: Denies cough and Denies dyspnea Gastrointestinal Gastrointestinal: Denies abdominal pain, Denies nausea and Denies vomiting Musculoskeletal Musculoskeletal: Denies joint swelling Neurologic Neurologic: Denies weakness Exam Const General: no acute distress Orientation: alert HENMT Head: normal to inspection Ears: external ears normal General nose exam: external nose normal Mouth: moist mucous membranes Eyes General: appearance normal, both eyes and all related structures Neck Neck: normal visual inspection Resp Effort & Inspection: normal respiratory effort and able to speak in complete sentences Auscultation: clear to auscultation bilaterally Cardio Jugular venous pressure: no JVD Rhythm: abnormal rhythm Skin General skin exam: no rashes or lesions noted Neuro General: patient alert and patient oriented x3 Extrem General: normal to inspection Psych Mental Status: mental status grossly normal Course Vital Signs Vital signs: Vital Signs Temperature 36.2 C L 02/08/24 20:15 Blood Pressure 173/72 H 02/08/24 20:15 Temperature 36.2 C L 02/08/24 20:15 Respiratory Effort Normal 02/08/24 20:18 Blood Pressure 173/72 H 02/08/24 20:15 Medical Decision Making 68-year-old female with a history of a flutter who had an ablation earlier this year comes in after she started feeling palpitations a few hours ago and checked her Apple Watch and advised her that she was in A-fib. She denies any severe chest pain though she says when she takes a deep breath she has some chest tightness. She denies any fevers, cough, abdominal pain, vomiting, diaphoresis. She is alert speaking clearly in no distress. She is in A-fib with rates ranging from 90-1 10 on exam. Otherwise stable vital signs. She has clear lung sounds, no murmurs, soft nontender abdomen. Advised it is common to have a failure of ablation, will check CBC, CMP, troponin and given she has pleuritic chest pain obtain CTA of the chest. Will provide a low-dose 2.5 mg IV metoprolol. Labs and imaging unremarkable, she continues to be in A-fib with rates in the 180s to 90s. Given reassuring workup feel she is stable for discharge will start on Eliquis and also have her follow-up with her PCP this week. Will start on low-dose metoprolol as well. Return precautions given Differential Diagnosis Differential Diagnosis: A-fib, electrolyte abnormality, PE Medical Records Medical records reviewed: Yes I reviewed the patient's medical records. Imaging Data Radiologic Study: Attestation: I personally reviewed and interpreted this imaging study as follows: Imaging: CT Scan Radiologist's impression: No acute findings Lab Data Lab results reviewed: Yes I reviewed the patient's lab results. ECG Data Attestation: I personally reviewed and interpreted this ECG (s) as follows: Prior ECG tracings: available for review Interpretation: afib rate of 92 qtc 476 no stemi Quality:SDOH Health Related Social Needs: No Data to Display [facility] All Active Problems (Updated 02/08/24 @ 22:24 by Ron Brown MD) Chest pain (Acute) Atrial fibrillation (Chronic) Vaginitis (Acute) Acquired pes planus of both feet (Acute) Bunion, right foot (Acute) Hallux limitus of left foot (Acute) Numerous skin moles (Acute) Vaginal bleeding (Acute) Pelvic floor dysfunction in female (Acute) Tinea pedis (Acute) Bilateral leg and foot pain (Acute) Porokeratosis (Acute) Neuritis (Acute) Atrial flutter (Acute) 48 hr holter monitor 12/25/22 Patellofemoral arthritis of right knee (Acute) Patellofemoral arthritis of left knee (Acute) Encounter for screening colonoscopy (Acute) H/O colonoscopy (Chronic ~09/16/18) 05/29/2008 Dr Fer Asher, small sigmoid diverticula, otherwise normal, repeat in ten years. 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 7.5cm simple in appearance Pre-diabetes (Chronic 01/18/15) Pessary maintenance (Chronic 04/12/17) ring with support; takes out every Sunday night, Vagifem for vaginal estrogen Pelvic relaxation due to uterovaginal prolapse (Chronic 10/06/15) Mild prolapse. Rx with #3 ring with support. Migraine (Chronic 01/18/15) treated successfully with amlodipine and Imatrex. 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 Medical History Vaginal discharge Women's annual routine gynecological examination Headache History of abnormal cervical Pap smear Incomplete prolapse of anterior wall of vagina Stress incontinence Overweight Hx of hemorrhoids Hand paresthesia Low back pain Knee pain, right Acquired complex renal cyst Gluten intolerance Vasovagal syncope Postmenopausal bleeding History of neck pain Seborrheic dermatitis Multilevel degenerative disc disease Abnormal brain MRI Adjustment disorder with mixed anxiety and depressed mood Asymptomatic postmenopausal status Stress incontinence in female Osteoarthritis Left ankle pain Benign skin lesion of multiple sites Bilateral thumb pain Tick bite Abnormal mammogram of right breast Paresthesia of both hands History of depression Uterovaginal prolapse, unspecified Rx with #3 ring with support. Removes and cleans it herself. Uses Vagifem. Pre-diabetes diet controlled Migraine headache Surgical History S/P ankle arthrodesis Vascular Surgery 1973 attempt to repair injury to R inguinal vessel. pt has decreased blood flow to that extremity. Ligation of fallopian tube 1984 Repair of ASD 1971 - injury to R femoral artery during procedure. poor circulation since Colonoscopy - IV Sedation 2005 Family History Father Diabetes Heart disease Mother Arthritis Diabetes Brother Diabetes Brother Diabetes Social History Smoking/Tobacco Use Status: Former Tobacco Use Smoking risk assessment performed?: Yes Drug use: Occasionally Substance use type: marijuana Household members: spouse and other Details: MIHIR desouza3-Aviva (1979), Clayton (1983)Chidi (1985) lives in [place]. 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
[2024-02-08 20:37] LABS: Abs Immature Grans 0.02 10^3/uL (0.0-0.06); Absolute Basophil Count 0.04 10^3/uL (0.0-0.2); Absolute Eosinophil Count 0.14 10^3/uL (0.0-0.7); Absolute Lymphocyte Count 2.07 10^3/uL (1.2-3.4); Absolute Neutrophil Count 2.85 10^3/uL (1.2-6.7); Basophils % 0.7 %; Eosinophils % 2.5 %; HCT 39.3 % (36.0-46.0); HGB 13.4 g/dL (11.2-15.7); Immature Grans % 0.4 %; Lymphocytes % 37.5 %; MCH 31.1 pg (27.0-33.0); MCHC 34.1 % (32.0-36.0); MCV 91 fL (80-95); MPV 10.3 fL (8.0-11.0); Monocytes % 7.2 %; Neutrophils % 51.7 %; Platelet Count 209 10^3/uL (130-400); RBC 4.31 10^6/uL (3.93-5.22); RDW 12.7 % (11.7-14.6); RDW-SD 42.4 fL; WBC 5.52 10^3/uL (4.4-10.8)
[2024-02-08] MEDS: Metoprolol 5 MG/5 ML VIAL 2.5 MG IVP (20:43)
[2024-02-08 20:51] LABS: PTT Activated 34.7 sec (23.6-32.8); Prothrombin Time 10.4 sec (9.1-11.1)
[2024-02-08 20:55] LABS: ALT 34 U/L (14-59); AST 15 U/L (15-37); Albumin 4.1 g/dL (3.4-5.0); Alkaline Phosphatase 79 U/L (46-116); Anion Gap 11.3 mmol/L (3-11); BUN 19 mg/dL (7-18); Bilirubin, Total 0.36 mg/dL (0.2-1.0); CO2 27.7 mmol/L (21.0-32.0); CREATININE 0.8 mg/dL (0.55-1.02); Calcium 8.9 mg/dL (8.5-10.1); Chloride 104 mmol/L (98-107); Estimated GFR 80.71 (mL/min/1.73m2); Glucose 182 mg/dL (74-106); Magnesium 2.1 mg/dL (1.8-2.4); Potassium 3.3 mmol/L (3.5-5.1); Sodium 143 mmol/L (136-145); Total Protein 7.4 g/dL (6.4-8.2); Troponin I < 50 ng/L (< or =60)
[2024-02-08] MEDS: Normal Saline - Diluent 50 ML VIAL IJ (21:14)
[2024-02-08] MEDS: Omnipaque 350 MG/ML 100 ML BTL IJ (21:16)
--- NOTE | 2024-02-08 22:03 | DI.VRAD_ITS ---
PROCEDURE INFORMATION: Exam: CTA Chest With Contrast Exam date and time: 02/08/2024 9:06 PM Age: 68 years old Clinical indication: Other: Pleuritic chest pain, ? pe TECHNIQUE: Imaging protocol: Computed tomographic angiography of the chest with contrast. Exam focused on the arteries. 3D rendering (Not supervised by radiologist): MIP and/or 3D reconstructed images were created by the technologist. Contrast material: OMNIPAQIE 350; Contrast volume: 100 ml; Contrast route: INTRAVENOUS (IV); COMPARISON: CR XR CHEST 2V PA LATERAL 02/09/2022 2:57 PM FINDINGS: Pulmonary arteries: Normal. No pulmonary emboli. Aorta: Unremarkable. No aortic aneurysm. No aortic dissection. Lungs: Hyperinflated. No consolidation. No masses. Pleural spaces: Unremarkable. No pneumothorax. No pleural effusion. Heart: Unremarkable. No cardiomegaly. No pericardial effusion. Heart RV/LV ratio: 0.83. Coronary arteries: No coronary artery calcification. Lymph nodes: Unremarkable. No enlarged lymph nodes. Diaphragm: Small hiatal hernia. Bones/joints: The spine demonstrates mild degenerative changes at multiple levels. T8 and T9 vertebral body hemangiomas. Soft tissues: Unremarkable. IMPRESSION: 1. No pulmonary artery embolism demonstrated. 2. Hyperinflation of the lungs. 3. Small hiatal hernia. Dictated and Authenticated by: Hank Vinson MD. Ordering:HANS Velasquez MD
[2024-02-08] MEDS: Apixaban 5 MG TAB PO (22:30)
--- NOTE | 2024-02-09 14:08 | NUR.NOTE ---
pt called questioning if she should continue taking amlodipine with new metoprolol rx. verified with dr baird to continue both meds. Nursing Note:
== END 2024-02-08 22:36 | disposition home or self-care (01) ==
LOC: ER 22:56
PROVIDERS: Emergency Provider Emergency Medicine; PCP Nurse Practitioner Family
DX: I48.91 Unspecified atrial fibrillation (principal); R07.9 Chest pain, unspecified
CPT/HCPCS: 36415; 71275; 80053; 93005; 96374; 99285; 83735; 84484; 85025; 85610; 85730; 93010; 99284; J3490

== ENCOUNTER 2024-02-12 21:57 | Outpatient (REF) | payer BC, SELFPAY ==
[2024-02-12 23:01] LABS: BUN 19 mg/dL (7-18); CREATININE 0.8 mg/dL (0.55-1.02); Chloride 105 mmol/L (98-107); Estimated GFR 80.71 (mL/min/1.73m2); Glucose 159 mg/dL (74-106); Potassium 3.7 mmol/L (3.5-5.1); Sodium 144 mmol/L (136-145); Vitamin B12 1496 pg/mL (193-986)
== END 2024-02-12 21:58 | disposition home or self-care (01) ==
LOC: NCHCN 21:57
PROVIDERS: PCP Nurse Practitioner Family; Visit Provider Nurse Practitioner Family
DX: I48.92 Unspecified atrial flutter (principal); M79.671 Pain in right foot; M79.672 Pain in left foot; R20.2 Paresthesia of skin
CPT/HCPCS: 80048; 82607

== ENCOUNTER 2024-03-31 09:15 | Outpatient (CLI) | payer BC, SELFPAY ==
--- NOTE | 2024-03-31 12:30 | W.CARDEVENT ---
Date of service: 03/31/24 Time of Service: 12:31 Cardiac Event Recorder Referring Provider:: Rupinder Farooq Indications:: Atrial flutter Cardiac Event Note: This is a cardiac event monitor. Patient was monitored for 13 days and 19 hours Rhythm throughout was sinus with an average heart rate of 69. Minimum was 43, maximum 114 There were rare isolated atrial and ventricular ectopic beats. There were several brief self-limited atrial runs. The longest of these was 5 beats in duration There was no atrial fibrillation, no high-grade AV block, no pauses greater than 3 seconds Symptoms were reported which correlated to sinus rhythm
== END 2024-03-31 09:16 | disposition home or self-care (01) ==
LOC: CARDOPNVT 09:15
PROVIDERS: PCP Nurse Practitioner Family; Visit Provider Internal Medicine Cardiovascular Disease
DX: I48.92 Unspecified atrial flutter (principal); I49.1 Atrial premature depolarization
CPT/HCPCS: 93246

== ENCOUNTER 2024-04-17 15:45 | Outpatient (REF) | payer BC, SELFPAY ==
[2024-04-17 17:39] LABS: ALT 42 U/L (14-59); AST 21 U/L (15-37); Albumin 4.1 g/dL (3.4-5.0); Alkaline Phosphatase 82 U/L (46-116); Anion Gap 11.2 mmol/L (3-11); BUN 20 mg/dL (7-18); Bilirubin, Total 0.31 mg/dL (0.2-1.0); CO2 26.8 mmol/L (21.0-32.0); CREATININE 0.7 mg/dL (0.55-1.02); Calcium 9.4 mg/dL (8.5-10.1); Calculated LDL 43 mg/dL (<100); Chloride 103 mmol/L (98-107); Cholesterol 143 mg/dL (<200); Estimated GFR 94.15 (mL/min/1.73m2); Glucose 112 mg/dL (74-106); HDL Cholesterol 47 mg/dL (40-60); Potassium 4.1 mmol/L (3.5-5.1); Sodium 141 mmol/L (136-145); Total Protein 7.1 g/dL (6.4-8.2); Triglyceride 266 mg/dL (<150)
== END 2024-04-17 15:46 | disposition home or self-care (01) ==
LOC: NCHCN 15:45
PROVIDERS: PCP Nurse Practitioner Family; Visit Provider Nurse Practitioner Family
DX: I48.92 Unspecified atrial flutter (principal); M79.671 Pain in right foot
CPT/HCPCS: 80053; 80061

== ENCOUNTER 2024-11-28 00:36 | Outpatient (CLI) | payer MEDICARE, BC, SELFPAY ==
--- NOTE | 2024-11-28 12:52 | DI.MAMMO_ITS ---
Exam(s) MAMMO SCREENING EXAM: MAMMO SCREENING CLINICAL HISTORY: SCREENING Z12.31. TECHNIQUE: Bilateral full field digital CC and MLO mammographic images were obtained with 3D tomosyn thesis and utilizing computer aided detection (CAD). COMPARISON: Prior mammograms dating back to 2017 were reviewed. FINDINGS: There has been no significant change in the appearance and distribution of the fibroglandular tissue. Dominant nodular density in the right breast remains stable from prior mammograms. Other unchanged n odules again noted, some which are skin moles. There are no new spiculated masses nor new malignant appearing microcalcification groups. There is no significant architectural distortion nor skin thickening-retraction. IMPRESSION: Stable benign-appearing findings. No radiographic evidence of malignancy. BI-RADS Category 2 - Benign Findings Breast Density - Category B - There are scattered areas of fibroglandular density. Breast density Category C or D implies that the patient has dense breast tissue. Dense breast tissue can make it harder to find cancer on a mammogram. Dense breast tissue is also associated with an incr eased risk of breast cancer. This information about the result of the mammogram report was provided to the patient to raise their awareness. Use this report when you speak with the patient about their risks for breast cancer, which includes their family history. At that time, you may recommend additional screening tests (Ultrasoun d or MRI) as these tests may add significant information. A negative radiographic report should not delay biopsy if a dominant or clinically suspicious mass is present. Up to ten percent of cancers are not identified on mammography. A negative report may reinforce clinical impression. Adenosis and dense breasts may obscure an underlying neoplasm. False positive reports average 6 to 10%. Patient will receive a letter notifying them of these results.
== END 2024-11-28 00:56 ==
LOC: DI 00:36
PROVIDERS: PCP Nurse Practitioner Family; Visit Provider Nurse Practitioner Family
DX: Z12.31 Encounter for screening mammogram for malignant neoplasm of breast (principal); R92.323 Mammographic fibroglandular density, bilateral breasts; D24.1 Benign neoplasm of right breast
CPT/HCPCS: 77063; 77067

== ENCOUNTER 2025-02-06 00:33 | Outpatient (CLI) | payer MEDICARE, BC, SELFPAY ==
--- NOTE | 2025-02-06 | DI.CT_ITS ---
Exam(s) CT CHEST WO EXAM: CT CHEST WO CLINICAL HISTORY: Solitary Pulm Nodule R91.1Lung Nodule. TECHNIQUE: Multi planar reconstructions were performed. CONTRAST MATERIAL: None COMPARISON: CT CT CHEST PE CTA from 02/08/2024 FINDINGS: CHEST: LUNGS: There is an unchanged pleural-based 3 millimeter noncalcified nodule in the left lower lobe, unchanged from CT scan of January 2024. There are no new significant pulmonary nodules, infiltrates, nor pleural effusions. Some scarring are platelike atelectasis isn't unchanged in the right upper lobe. This is adjacent to prior healed rib fracture. MEDIASTINUM: There is no obvious hilar nor mediastinal adenopathy. Partially calcified nodule is noted in the partially included right thyroid lobe.No supraclavicular adenopathy. No axillary adenopathy. CARDIAC: Heart size is normal. There is no pericardial effusion.Caliber of the thoracic aorta is within normal limits. VISUALIZED UPPER ABDOMEN:No adrenal masses. Uniformly hyperdense exophytic nodule off the superior pole of the left kidney is most probably a hemorrhagic cyst, unchanged from 1 year ago. OSSEOUS: Chronically fractured right 4th rib again noted with adjacent lung scarring, unchanged. No acute fractures. Hemangiomas are again noted in the 8th and 9th vertebral bodies, unchanged.. IMPRESSION: 1. Stable unchanged appearance of solitary small benign-appearing pleural based 3 millimeter nodule in the left lower lobe. No new nodules evident. No intrathoracic adenopathy. No pleural effusions. 2. Partially calcified nodule noted in the right thyroid lobe which is partially included in the field of view of this study. If clinically indicated this can be further studied with thyroid ultrasound. 3. Benign hemangiomas noted in the 8th and 9th vertebral bodies, unchanged. RADIATION DOSE DELIVERED: 226.9mGy.cm Total DLP DATA REPOSITORY: All CT scans at this facility are submitted to the National Radiology Data Registry (NRDR) Dose Index Registry (DIR) with the [employer] ([employer]). RADIATION OPTIMIZATION: All CT scans at this facility use at least one of these dose optimization techniques: automated exposure control; mA and/or kV adjustment per patient size (includes targeted exams where dose is matched to clinical indication); or iterative reconstruction.
== END 2025-02-06 00:53 ==
PROVIDERS: PCP Nurse Practitioner Family; Visit Provider Nurse Practitioner Family
DX: R91.1 Solitary pulmonary nodule (principal)
CPT/HCPCS: 71250

== ENCOUNTER 2025-04-21 17:11 | Outpatient (REF) | payer MEDICARE, BC, SELFPAY ==
[2025-04-21 20:53] LABS: Glucose Negative (Negative)
[2025-04-21 21:01] LABS: C & S Indicated? No; RBC 0-2 HPF (0-2); WBC 0-2 HPF (0-5)
[2025-04-21 21:34] LABS: COMMENT (LAB VIEW ONLY) 43.99 mg/dL; Microalb ug/mg Crea 12.5 ug/mg Cr
[2025-04-21 22:22] LABS: ALT 37 U/L (14-59); AST 18 U/L (15-37); Albumin 4.1 g/dL (3.4-5.0); Alkaline Phosphatase 73 U/L (46-116); Anion Gap 11.1 mmol/L (3-11); BUN 18 mg/dL (7-18); Bilirubin, Total 0.4 mg/dL (0.2-1.0); CO2 26.9 mmol/L (21.0-32.0); Calcium 9.0 mg/dL (8.5-10.1); Chloride 102 mmol/L (98-107); Cholesterol 139 mg/dL (<200); Estimated GFR 69.20 (mL/min/1.73m2); Glucose 175 mg/dL (74-106); Potassium 3.9 mmol/L (3.5-5.1); Sodium 140 mmol/L (136-145); TSH (W/Ref FT4) 0.86 uIU/mL (0.36-3.74); Total Protein 6.9 g/dL (6.4-8.2); Triglyceride 305 mg/dL (<150)
[2025-04-21 23:08] LABS: Hemoglobin A1C 6.9 % (<5.7)
[2025-04-22 04:58] LABS: Calculated LDL 41 mg/dL (<100); HDL Cholesterol 37 mg/dL (>or=50)
== END 2025-04-21 17:12 | disposition home or self-care (01) ==
LOC: NCHCN 17:11
PROVIDERS: PCP Nurse Practitioner Family; Visit Provider Nurse Practitioner Family
DX: R73.03 Prediabetes (principal); E04.1 Nontoxic single thyroid nodule
CPT/HCPCS: 80053; 80061; 81003; 81015; 82043; 82570; 83036; 84443

== ENCOUNTER 2025-06-01 03:17 | Outpatient (CLI) | payer MEDICARE, BC, SELFPAY ==
--- NOTE | 2025-06-09 09:22 | W.NUTRFU ---
Date of service: 06/01/25 Time of Service: 15:30 Nutrition Note NOTE: Met with Sherrill regarding diabetes education/mgt referral received. Per office visit notes from 05/14/25: 86.2kg, 63.5 with BMI of 33.2. IBW: 54kg AdjBW:69kg Current meds include. atorbastatin, Ozempic and magnesium, fiber supplement, vitamin D. Tends to lean on GF diet as experience with too much gluten causing stomach pain. She relates experiencing headaches if she goes too long without eating so aims for 3 meals and 2 snacks per day. B- egg with 2x toast or cherrios with fruit and yogurt Snack- cheese and crackers or apple and crackers L-Salad with protein (beans or lunch meat) or sandwich S- Pretzels and fruit D-Meat Veggie potato/rice Tries not to snack after dinner Estimated energy needs: 1770kcals (recommend ~1400 for facilitation of weight loss. 103g protein (1.5g/kgAdjBW). 1770mL fluid (1mL per required kcal). reviewed her usual diet looks lower in fiber than would be ideal for help with wt loss and needs more protein as well from lower kcal sources (not all animal sources due to fat content), Encouraged front loading the day with large breakfast and aiming for at least 30g protein within first hour of waking. Encouraged higher fiber grain products when choosing them - 3g fiber or more per serving. Highlighted exercise, especially strength training for help with insulin sensitivity and protect lean tito mass (suggested she try to avoid justifying eating more if exercising) Gave some sample menus and suggested focusing on body recomposition rather than loss of weight as she doesn't want to lose muscle. Suggested bio-impedance scale to see trends and focus on visceral fat losses. Pt has my contact info should she desire follow up or wants to reach out with any questions or troublshoot struggles. Time Spent in Nutritional Counseling and Treatment: 45 min
== END 2025-06-01 03:18 | disposition home or self-care (01) ==
LOC: DS 03:17
PROVIDERS: PCP Nurse Practitioner Family; Visit Provider Dietitian, Registered
DX: E11.9 Type 2 diabetes mellitus without complications (principal)
CPT/HCPCS: 00123; 97802